=== PATIENT | male | born 1945 | race Caucasian/White ===

== ENCOUNTER 2023-07-05 16:26 | Emergency (ER) | payer MEDICARE, BC, SELFPAY ==
[2023-07-05 16:56] VITALS: BP 119/76
[2023-07-05 17:12] LABS: % Basophils 0.2 % (0-2); % Immature Granulocytes 0.4 % (0-0.5); % Lymphocytes 3.3 % (20.5-51.1); % Monocytes 6.2 % (1.7-9.3); % Neutrophils 89.9 % (42.2-75.2); Absolute Lymphocytes 0.3 10^3/uL (1.2-3.4); Absolute Monocytes 0.6 10^3/uL (0.1-0.6); Absolute Neutrophils 9.1 10^3/uL (1.4-6.5); Hematocrit 36.2 % (39.0-52.0); Hemoglobin 12.2 g/dL (13.0-18.0); Mean Corp Hgb Conc. 33.7 g/dL (33.0-37.0); Mean Corpuscular Hgb 31.1 pg (27.0-31.0); Mean Corpuscular Volume 92.3 fL (80.0-94.0); Mean Platelet Volume 9.3 fL (7.4-10.4); Nucleated Red Blood Cells % 0 % (-); Platelet Count 219 10^3/uL (130-400); Red Blood Cell Count 3.92 10^6/uL (4.70-6.10); Red Cell Dist. Width 13.6 % (11.5-14.5); White Blood Cell Count 10.1 10^3/uL (4.8-10.8)
[2023-07-05 17:24] LABS: ALT (SGPT) 26 U/L (0-50); AST (SGOT) 31 U/L (17-59); Albumin 4.2 g/dl (3.5-5.0); Alkaline Phosphatase 114 U/L (38-126); Blood Urea Nitrogen 30 mg/dl (9-20); Calcium 9.1 mg/dl (8.4-10.2); Carbon Dioxide 21 mmol/L (22-30); Chloride 110 mmol/L (98-107); Glucose 129 mg/dl (70-99); Lipase 34 U/L (23-300); Potassium 4.4 mmol/L (3.5-5.1); Sodium 139 mmol/L (135-145); Total Bilirubin 0.8 mg/dl (0.2-1.3); eGFR 51.45
[2023-07-05 17:59] VITALS: BMI 22.1
--- NOTE | 2023-07-05 18:30 | ED.GENMED ---
History of Present Illness
General
Chief Complaint: Abdominal Pain
Source: patient and other (Friend who is power of attorney general)
Exam Limitations: none
Time Seen by Provider: 07/05/23 17:54
Travel History
Have you had any contact with someone who has COVID-19?: No
Do you have any symptoms of coronavirus? Fever > 100 degrees, chills, cough, shortness of breath, sore throat, loss of taste or smell, muscle aches, or headache?: Yes
Symptoms:: chills
History of Present Illness
History of Present Illness:
This is a 78 year old male that is brought in by with c/o vomiting and diarrhea. Sates that he has only been home from Rehab for 2 weeks. Then last night he started with vomiting and diarrhea. Told that the vomiting started out clear and then it
turned brown. States that he did have some chills and his abd feels sore. Denies any fever, chest pain, SOB, headache, dizziness, urinary burning.
Past History
Past History
ED Past Medical History: Asthma, GERD, HTN, Hypercholesterolemia, Other (hiatal hernia, cerebral palsy, Diverticulitis, Renal calculus, Left arm fracture, ), Other (gallstones, diverticulitis) and Other (Kidney stones, CP)
ED Past Surgical History: Cardiac (Stents), Cholecystectomy, Orthopedic (L4-5 fusion with laminectomy), Tonsilectomy, Urological (JJ stents, lithrotripsy) and Other (Hernia)
Social History
Tobacco: Non-smoker
Alcohol: None
Personal: Single
Living: alone (daughters nearby)
Family History
Family History: Other (non contributory)
Review of Systems
Review of Systems
All Other Systems: ROS reviewed and negative except as documented in HPI and ROS
Constitutional: Reports chills; Denies fever
EENT: Reports no symptoms
Respiratory: Denies cough or trouble breathing
Cardiac: Reports no symptoms; Denies chest pain
ABD/GI: Reports abdominal pain (feels sore), nausea, vomiting and diarrhea
: Reports no symptoms; Denies dysuria, frequency or urgency
Musculoskeletal: Reports no symptoms
Skin: Reports no symptoms
Neurological: Reports no symptoms; Denies dizzy or headache
Psychiatric: Reports no symptoms
Phy Exam
General Physical Exam
General Presentation: no apparent distress
General age: appears stated age
General Skin: warm and dry
General Habitus: elderly
General Mental: alert
General Hydration: appears well hydrated
ENT Exam
ENT Exam: TM's normal, pharynx normal and neck supple
Eye Exam
Eye Exam: EOMI
Cardiovascular Exam
Cardiovascular Exam: regular rate/rhythm and normal peripheral pulses
Pulmonary Exam
Pulmonary Exam: lungs clear, no respiratory distress, no rales, chest non tender, no crackles, no rhonchi, no wheezing and no cough
Gastrointestinal Exam
Gastrointestinal Exam: normal bowel sounds, soft, no organomegaly, no pulsatile mass, non distended, tender (right sided tenderness with palpation) and other (Stool brown hem negative. )
Musculoskeletal Exam
Musculoskeletal Exam: full ROM and edema (Lower legs R>L +2pitting)
Skin Exam
Skin Exam: normal color, warm/dry, no rash and no petechia
Psychiatric Exam
Psychiatric Exam: normal mood/affect
Course
Orders/Labs/Results
Orders:
Orders
07/05/23 17:03
Complete Blood Count/With Diff Urgent
Comprehensive Metabolic Panel Urgent
Lipase Urgent
07/05/23 18:28
0.9% Sodium Chloride 1000 ml [Nss] 1,000 ml IV BOLUS
Iohexol [Omnipaque] See Protocol PO NOW STA
07/05/23 18:29
CT Abd/pel W Iv And Oral Contr Urgent
Comment:
Reason For Exam: right sided abd tenderness
07/05/23 18:30
Ondansetron Injectable [Zofran] 4 mg IV NOW STA
07/05/23 18:32
Pantoprazole [Protonix IV] 40 mg IV NOW STA
Abnormal Lab Results
07/05/23
17:03
RBC 3.92 L 10^6/uL
(4.70-6.10)
Hgb 12.2 L g/dL
(13.0-18.0)
Hct 36.2 L %
(39.0-52.0)
MCH 31.1 H pg
(27.0-31.0)
Absolute Neuts (auto) 9.1 H 10^3/uL
(1.4-6.5)
Absolute Lymphs (auto) 0.3 L 10^3/uL
(1.2-3.4)
Neutrophils % 89.9 H %
(42.2-75.2)
Lymphocytes % 3.3 L %
(20.5-51.1)
Chloride 110 H mmol/L
(98-107)
Carbon Dioxide 21 L mmol/L
(22-30)
BUN 30 H mg/dl
(9-20)
Creatinine 1.4 H mg/dL
(0.7-1.3)
Glucose 129 H mg/dl
(70-99)
07/05/23 17:03
07/05/23 17:03
H/H slightly low. chloride elevated. Dehydration. Chronic renal insufficiency, Glucose nonfasting. Lipase normal at 34
Vital Signs
Initial and Last Documented VS:
Initial Vital Signs
Temp Pulse Resp BP Pulse Ox
99.3 F 102 16 119/76 96
07/05/23 16:56 07/05/23 16:56 07/05/23 16:56 07/05/23 16:56 07/05/23 16:56
Last Documented Vital Signs
Temp Pulse Resp BP Pulse Ox
98.3 F 77 20 102/68 98
07/05/23 21:04 07/05/23 21:04 07/05/23 21:04 07/05/23 21:04 07/05/23 21:04
MDM/Problems Addressed
Differential Diagnosis Includes:
Viral Gi syndrome.
MDM/Problems Addressed:
This is a 78 year old male that comes in with c/o vomiting and diarrhea. States that this started last night and that at first his vomit was clear and then it was brown.
Will check labs and get CT of abd/pelvis. Will also give IV fluids.
Back into see patient. Explained that his blood work shows dehydration. His CT was negative for anything acute. There is diverticulosis and a stone in the left kidney. Patient states that the stone has been there for years. Explained that this could
have been a viral illness. Will give patient a prescription for Zofran. Patient to stay on a liquid diet and advance as tolerated. Patient to stay away form milk and milk products until the diarrhea stops. Patient to return with any concerns.
Chronic conditions affecting care:
NA
Acute Exacerbation and/or Progression of Chronic Illness:
NA
*Radiology
Radiology exam reviewed: radiology read reviewed (CT-No Ct evidence for an acute inflammatory process in the abd or pelvis. Colonic diverticulosis. Nephrolithiasis, primarily in the left lower pole. No hydronephrosis. Multiple bilateral renal cyst.
Large hiatal hernia. )
*Pulse Oximetry
Patient hypoxic: no
*EKG
Interpreted by ED Provider?: NA
Rate: EKG- N/A
*Lead Tank Mechanic Interpretation
Rate: Lead Tank Mechanic- N/A
*Critical Care Note
Total Time (30-74mins, 75-104mins- exclusive of procedures): Not Applicable
ED Attending Note
-
Portions of this chart may have been created with voice recognition software.� Occasional wrong word or��sound alike� substitutions may have occurred due to the inherent limitations of voice recognition software.
Discharge Plan
Departure
Patient Disposition: Home (Routine Discharge)
Date of Disposition: 07/05/23
Time of Disposition: 22:29
Patient with high blood pressure during this ER visit?: No
Condition: Good
Covid-19: Not Applicable
Discharge Problem:
Nausea & vomiting, Diarrhea
Instructions: Diarrhea in adolescents and adults, Nausea and Vomiting, Adult (DC)
Prescriptions:
New
ondansetron 4 mg tablet,disintegrating
4 mg PO Q8H PRN (Reason: nausea and vomiting) Qty: 10 0RF
No Action
simvastatin 40 MG tablet
40 mg PO DAILY
lisinopril 10 MG tablet
10 mg PO DAILY
fexofenadine-pseudoephedrine [Deandra-D 24 Hour] 1 EACH tablet extended release 24 hr
10 mg PO DAILY PRN (Reason: allergies)
cholecalciferol (vitamin D3) [Vitamin D3] 2,000 UNIT capsule
2,000 unit PO DAILY
acetaminophen 325 MG tablet
650 mg PO Q4HPRN PRN (Reason: PAIN)
esomeprazole magnesium [Nexium] 40 MG capsule,delayed release(DR/EC)
40 mg PO DAILY
Dexilant
60 mg PO DAILY
Rx Instructions:
unsure of dose
Referrals:
Betsy Lara, [Family Provider] - Follow up in 2-3 days
Activity Restrictions/Additional Instructions:
As discussed, your blood work shows that you are dehydration. Please increase your water intake to 8-8oz glasses daily. Please stay away from milk and milk products until the diarrhea stops. Stay on a liquid diet for the next 24 hours and then
advance your as tolerated. Follow up with the family doctor for recheck. A Prescription has been sent to your Pharmacy for Zofran that will help with the nausea/vomiting. IF YOU HAVE ANY OTHER CONCERNS PLEASE RETURN TO THE EMERGENCY ROOM.
Interventions
Interventions:
*Risk Screen - Suicide Last Done: 07/05/23 17:59
*General Assessment Last Done: 07/05/23 16:56
*Neglect/Abuse Screening Last Done: 07/05/23 17:59
ED- Fall Risk Assessment Last Done: 07/05/23 21:04
*ED COVID-19 Vaccine History Last Done: 07/05/23 16:56
GG-Lmjauy-Hpuwkrxbiw Assessment Last Done: 07/05/23 21:04
[2023-07-05] MEDS: ZOFRAN 4 MG IV (18:38)
[2023-07-05] MEDS: OMNIPAQUE 50 ML PO (18:38)
[2023-07-05 18:39] VITALS: BP 109/67
[2023-07-05] MEDS: PROTONIX IV 40 MG IV (18:39)
[2023-07-05] MEDS: NSS 1000 IV (18:41)
[2023-07-05 19:01] VITALS: BP 103/67
[2023-07-05 19:50] VITALS: BP 103/67
[2023-07-05 21:04] VITALS: BP 102/68
[2023-07-05] MEDS: ZOFRAN 4 MG PO (22:38)
[2023-07-05 22:40] VITALS: BP 103/54
== END 2023-07-05 23:03 | disposition home or self-care (01) ==
LOC: EMR 16:26
PROVIDERS: Emergency Medicine; EMERGENCY PHYSICIAN Student in an Organized Health Care Education/Training Program; FAMILY PHYSICIAN Family Medicine
DX: R11.2 Nausea with vomiting, unspecified (principal); R19.7 Diarrhea, unspecified
CPT/HCPCS: 99285; 96374; 96375; 96361; 74177; 80053; 83690; 85025; Q9967

== ENCOUNTER → 2023-11-16 14:20 | Outpatient (REF) | payer MEDICARE, BC, SELFPAY | LOC: HWRAD 14:20 | PROVIDERS: ATTENDING PHYSICIAN Family Medicine | DX: M81.0 Age-related osteoporosis without current pathological fracture (principal) | CPT/HCPCS: 77080 ==

== ENCOUNTER → 2023-11-17 08:02 | Outpatient (REF) | payer MEDICARE, BC, SELFPAY ==
[2023-11-17 11:29] LABS: ALT (SGPT) 25 U/L (0-50); AST (SGOT) 28 U/L (17-59); Alkaline Phosphatase 98 U/L (38-126); Blood Urea Nitrogen 27 mg/dl (9-20); Calcium 9.7 mg/dl (8.4-10.2); Carbon Dioxide 25 mmol/L (22-30); Chloride 108 mmol/L (98-107); Glucose 96 mg/dl (70-99); HDL Cholesterol 62 mg/dl; LDL Cholesterol, Calculated 84 mg/dl; Potassium 4.9 mmol/L (3.5-5.1); Sodium 142 mmol/L (135-145); Total Bilirubin 0.9 mg/dl (0.2-1.3); Total Cholesterol 161 mg/dl (50-199); Total Protein 6.7 g/dl (6.3-8.2); Triglyceride 78 mg/dl (10-149); Very Low Density Lipoprotein 15 mg/dl (0-30); eGFR 43.83
[2023-11-17 11:39] LABS: Vitamin D, 25-OH*** 49.1 ng/mL (30-80)
[2023-11-17 11:53] LABS: PSA, Total - Diagnostic 2.64 ng/ml (0.0-4.0)
[2023-11-17 11:54] LABS: Glycohemoglobin (HgbA1c) 5.4 % (4.0-5.6)
[2023-11-17 12:34] LABS: TSH 0.52 uIU/ml (0.47-4.68)
[2023-11-17 14:00] LABS: % Basophils 1.3 % (0-2); % Eosinophils 1.6 % (0-6); % Immature Granulocytes 0.4 % (0-0.5); % Lymphocytes 26.9 % (20.5-51.1); % Neutrophils 60.8 % (42.2-75.2); Absolute Basophils 0.1 10^3/uL (0-0.2); Absolute Eosinophils 0.1 10^3/uL (0-0.7); Absolute Lymphocytes 1.5 10^3/uL (1.2-3.4); Absolute Monocytes 0.5 10^3/uL (0.1-0.6); Absolute Neutrophils 3.4 10^3/uL (1.4-6.5); Hematocrit 37.5 % (39.0-52.0); Hemoglobin 12.6 g/dL (13.0-18.0); Mean Corp Hgb Conc. 33.6 g/dL (33.0-37.0); Mean Corpuscular Hgb 29.9 pg (27.0-31.0); Mean Corpuscular Volume 89.1 fL (80.0-94.0); Mean Platelet Volume 9.9 fL (7.4-10.4); Nucleated Red Blood Cells % 0 % (-); Platelet Count 230 10^3/uL (130-400); Red Blood Cell Count 4.21 10^6/uL (4.70-6.10); Red Cell Dist. Width 12.9 % (11.5-14.5); White Blood Cell Count 5.6 10^3/uL (4.8-10.8)
[2023-11-17 14:53] LABS: Urine Albumin Negative (Neg - Trace); Urine Bilirubin Negative (Negative); Urine Character Clear (Clear); Urine Color Yellow; Urine Glucose Negative (Negative); Urine Ketone Negative (Negative); Urine Leukocyte Negative (Negative); Urine Nitrite Negative (Negative); Urine Occult Blood Negative (Negative); Urine Urobilinogen Negative (Neg - 1+)
[2023-11-17 16:11] LABS: Microalbumin, Random Urine 1.5 mg/dl (0.6-1.7); Microalbumin/creatinine Ratio 8.6 mg/g
== END ==
LOC: HWLAB 08:02
PROVIDERS: ATTENDING PHYSICIAN Family Medicine
DX: R73.01 Impaired fasting glucose (principal); I10 Essential (primary) hypertension; M18.32 Unilateral post-traumatic osteoarthritis of first carpometacarpal joint, left hand; E78.5 Hyperlipidemia, unspecified; E55.9 Vitamin D deficiency, unspecified; R68.89 Other general symptoms and signs; M81.0 Age-related osteoporosis without current pathological fracture; N40.0 Benign prostatic hyperplasia without lower urinary tract symptoms
CPT/HCPCS: 36415; 80053; 80061; 81003; 82043; 82306; 82570; 83036; 84153; 84443; 85025

== ENCOUNTER → 2024-07-26 08:25 | Outpatient (REF) | payer MEDICARE, BC, SELFPAY ==
[2024-07-26 12:42] LABS: % Eosinophils 3.2 % (0-6); % Immature Granulocytes 0.6 % (0-0.5); % Lymphocytes 24.5 % (20.5-51.1); % Monocytes 9.1 % (1.7-9.3); % Neutrophils 61.6 % (42.2-75.2); Absolute Basophils 0.1 10^3/uL (0-0.2); Absolute Eosinophils 0.2 10^3/uL (0-0.7); Absolute Lymphocytes 1.5 10^3/uL (1.2-3.4); Absolute Monocytes 0.6 10^3/uL (0.1-0.6); Absolute Neutrophils 3.8 10^3/uL (1.4-6.5); Hematocrit 36.9 % (39.0-52.0); Hemoglobin 12.1 g/dL (13.0-18.0); Mean Corp Hgb Conc. 32.8 g/dL (33.0-37.0); Mean Corpuscular Hgb 30.3 pg (27.0-31.0); Mean Corpuscular Volume 92.3 fL (80.0-94.0); Mean Platelet Volume 9.6 fL (7.4-10.4); Nucleated Red Blood Cells % 0 % (-); Platelet Count 229 10^3/uL (130-400); Red Cell Dist. Width 12.9 % (11.5-14.5); Reticulocyte Count 1.3 % (0.4-2.8); White Blood Cell Count 6.2 10^3/uL (4.8-10.8)
[2024-07-26 12:55] LABS: ALT (SGPT) 20 U/L (0-50); AST (SGOT) 27 U/L (17-59); Albumin 4.5 g/dl (3.5-5.0); Alkaline Phosphatase 108 U/L (38-126); Blood Urea Nitrogen 28 mg/dl (9-20); Calcium 9.4 mg/dl (8.4-10.2); Carbon Dioxide 25 mmol/L (22-30); Chloride 108 mmol/L (98-107); Glucose 98 mg/dl (70-99); HDL Cholesterol 69 mg/dl; Iron 118 ug/dl (49-181); LDL Cholesterol, Calculated 90 mg/dl; Magnesium 2.1 mg/dl (1.6-2.3); Potassium 4.5 mmol/L (3.5-5.1); Sodium 142 mmol/L (135-145); Total Bilirubin 1.1 mg/dl (0.2-1.3); Total Cholesterol 175 mg/dl (50-199); Triglyceride 83 mg/dl (10-149); Very Low Density Lipoprotein 16 mg/dl (0-30)
[2024-07-26 13:04] LABS: Percent Saturation 36 % (20-50); Total Iron Binding Capacity 327 ug/dl (261-462)
[2024-07-26 13:05] LABS: Intact PTH 72.6 pg/ml (13.6-85.8)
[2024-07-26 13:16] LABS: Microalbumin/creatinine Ratio 6.8 mg/g
[2024-07-26 13:30] LABS: Ferritin 26.1 ng/ml (17.9-464.0)
== END ==
LOC: HWLAB 08:25
PROVIDERS: ATTENDING PHYSICIAN Internal Medicine; FAMILY PHYSICIAN Family Medicine
DX: I10 Essential (primary) hypertension (principal); E78.2 Mixed hyperlipidemia; D64.9 Anemia, unspecified; N18.32 Chronic kidney disease, stage 3b; M81.0 Age-related osteoporosis without current pathological fracture; R73.01 Impaired fasting glucose; E55.9 Vitamin D deficiency, unspecified
CPT/HCPCS: 36415; 80053; 80061; 82043; 82570; 82728; 83540; 83550; 83735; 83970; 85025; 85045

== ENCOUNTER → 2025-03-21 07:59 | Outpatient (REF) | payer MEDICARE, BC, SELFPAY ==
[2025-03-21 10:18] LABS: Hematocrit 35.0 % (39.0-52.0); Hemoglobin 11.5 g/dL (13.0-18.0); Mean Corp Hgb Conc. 32.9 g/dL (33.0-37.0); Mean Corpuscular Volume 90.0 fL (80.0-94.0); Nucleated Red Blood Cells % 0 % (-); Platelet Count 260 10^3/uL (130-400); Red Cell Dist. Width 13.7 % (11.5-14.5)
[2025-03-21 10:31] LABS: Urine Character Clear (Clear)
[2025-03-21 10:37] LABS: ALT (SGPT) 25 U/L (0-50); AST (SGOT) 22 U/L (17-59); Albumin 4.0 g/dl (3.5-5.0); Alkaline Phosphatase 106 U/L (38-126); Blood Urea Nitrogen 59 mg/dl (9-20); Calcium 9.1 mg/dl (8.4-10.2); Carbon Dioxide 17 mmol/L (22-30); Chloride 117 mmol/L (98-107); Glucose 110 mg/dl (70-99); HDL Cholesterol 68 mg/dl; LDL Cholesterol, Calculated 100 mg/dl; Potassium 5.6 mmol/L (3.5-5.1); Sodium 142 mmol/L (135-145); Total Protein 6.7 g/dl (6.3-8.2); Very Low Density Lipoprotein 19 mg/dl (0-30); eGFR 31.23
[2025-03-21 10:49] LABS: Vitamin D, 25-OH*** 74.4 ng/mL (30-80)
[2025-03-21 10:57] LABS: Glycohemoglobin (HgbA1c) 5.6 % (4.0-5.6)
[2025-03-21 11:02] LABS: PSA, Total - Diagnostic 2.98 ng/ml (0.0-4.0); TSH 1.01 uIU/ml (0.47-4.68)
[2025-03-21 11:33] LABS: Urine Squamous Cell 0-2 /LPF (Few)
[2025-03-21 11:34] LABS: Urine Red Blood Cell 0-2 /HPF (0-2); Urine White Cell 0-2 /HPF (0-5)
[2025-03-21 11:42] LABS: Microalbumin, Random Urine 1.0 mg/dl (0.6-1.7)
[2025-03-21 11:47] LABS: Microalb - Urine Creatinine 92.500 mg/dl
== END ==
LOC: HWLAB 07:59
PROVIDERS: ATTENDING PHYSICIAN Family Medicine
DX: R73.01 Impaired fasting glucose (principal); I10 Essential (primary) hypertension; E78.5 Hyperlipidemia, unspecified; N18.32 Chronic kidney disease, stage 3b; E55.9 Vitamin D deficiency, unspecified; R68.89 Other general symptoms and signs; N40.0 Benign prostatic hyperplasia without lower urinary tract symptoms
CPT/HCPCS: 36415; 80053; 80061; 81003; 81015; 82043; 82306; 82570; 83036; 84153; 84443; 85025

== ENCOUNTER 2025-03-24 13:32 | Inpatient (IN) | payer MEDICARE, BC, SELFPAY ==
[2025-03-24] VITALS (9 sets, daily range): BP systolic 100–114; BP diastolic 56–69; BMI 20.4; BMI 19.0
--- NOTE | 2025-03-24 10:14 | ED.GENMED ---
History of Present Illness
<Edward Le PA-C - Last Filed: 03/24/25 14:26>
General
Chief Complaint: Abnormal Lab Value
Time Seen by Provider: 03/24/25 10:03
History of Present Illness
History of Present Illness:
8-year-old male with history of cerebral palsy, hypertension, hyperlipidemia presents to the emergency department for evaluation of general fatigue and weakness ongoing for the past month. Patient was primary care physician earlier in the week and
had outpatient labs that showed abnormal renal function, thus was sent to the ED due to worsening symptoms. He denies any recent fevers or chills. He does report that his 'gastritis' has been acting up lately and usually controls this with
dicyclomine however the dicyclomine is not helping. States that he 'feels dehydrated'.
Past History
<Edward Le PA-C - Last Filed: 03/24/25 14:26>
Past History
ED Past Medical History: Asthma, GERD, HTN, Hypercholesterolemia, Other (hiatal hernia, cerebral palsy, Diverticulitis, Renal calculus, Left arm fracture, ), Other (gallstones, diverticulitis) and Other (Kidney stones, CP)
ED Past Surgical History: Cardiac (Stents), Cholecystectomy, Orthopedic (L4-5 fusion with laminectomy), Tonsilectomy, Urological (JJ stents, lithrotripsy) and Other (Hernia)
Social History
Tobacco: Non-smoker
Alcohol: None
Personal: Single
Living: alone (daughters nearby)
Family History
Family History: Other (non contributory)
Review of Systems
<Edward Le PA-C - Last Filed: 03/24/25 14:26>
Review of Systems
Allergies reviewed?: Yes
All Other Systems: ROS reviewed and negative except as documented in HPI and ROS
Phy Exam
<Edward Le PA-C - Last Filed: 03/24/25 14:26>
Physical Exam
Physical Exam:
GEN: Well appearing, NAD, WDWN
HEENT: Oral mucosa moist, no scleral icterus
Cardiac: Regular rate and rhythm, subtle systolic murmur reportedly known to patient
Lung: No respiratory distress, no tachypnea
MSK: No gross deformity or injuries
Skin: Good color, no pallor or jaundice, no rashes
Neuro: AO x3, moves all extremities freely
Psych: Calm, cooperative
Course
<Edward Le PA-C - Last Filed: 03/24/25 14:26>
Orders/Labs/Results
Orders:
Orders
03/24/25 10:06
Bladder Scan- Treatment ONCE
Comment: Post void residual
0.9% Sodium Chloride 1000 ml [Nss] 1,000 ml IV BOLUS
03/24/25 10:25
Complete Blood Count/No Diff Urgent
Comprehensive Metabolic Panel Urgent
Urinalysis Reflex To Culture Urgent
Date Specimen was Collected: 03/24/25
Time Specimen was Collected: 10:19
Urine Microscopic Reflex Cult Urgent
03/24/25 11:07
Electrocardiogram (*1) Urgent
Reason for Study: QTc Monitoring
EKG- Treatment ONCE
03/24/25 11:16
Dextrose 50%-Water [Dextrose 50% Syringe] 12.5 grams IV [id number] PRN
Dextrose 50%-Water [Dextrose 50% Syringe] 25 grams IV NOW STA
Insulin Human Regular [Novolin R] 5 units IV NOW STA
Bedside Glucose PRE IV Insulin- HyperK+ NOW
03/24/25 12:03
Straight Cath As Directed
Frequency: One time now
03/24/25 12:20
Dextrose 5%/Water 1000 ml [D5w] 1,000 ml Sodium Bicarbonate 150 meq IV 100 mls/hr
03/24/25 12:46
Bedside Glucose POST IV Insulin- HyperK+ Q1HX2,Q2HX2
03/24/25 12:51
Admit/Transfer Patient As Directed
Co-Sign Provider:
Level of Care: Inpatient admission
Assign to:: Telemetry
Physician / Group: keke
Diagnosis: demetra
Reason for Telemetry: Arrhythmia
Date to Stop Telemetry: 03/27/25
Time to Stop Telemetry: 11:00
Reason for Hospitalization: demetra
Expected length of stay greater than two midnights?: Yes
ELOS- Estimated Length of Stay in days: 2
I certify the patient meets the requirements for IP care: Yes
03/24/25 12:52
Code Status As Directed
Resuscitation Status: Full Code
PRN Pain Medication Management As Directed
May give lesser potent ordered pain med per pt: Yes
preference::
Protocol:: Medication orders for pain may be administered in a
manner that supports deferring to patient preference
when the pt is:
- Requesting an ordered lesser potent pain medication.
Least to most potent pain medications are defined
as: acetaminophen < NSAID < tramadol < opioids
(morphine, oxycodone, hydromorphone).
- Requesting a lesser dose of the same medication IF
ORDERED.
- Requesting a less intrusive route of administration
if both routes are prescribed by the provider (PO <
IV).
03/24/25 12:53
Abdomen/Pelvis wo Contrast CT [CT Abd/pelvis Wo Iv Cont] Urgent
Comment:
Reason For Exam: obstructive uropathy
03/24/25 12:55
Glucose Urgent
Potassium Urgent
Comment: draw 2 hours after regular insulin IV administration
Calcium Gluconate 1,000 mg IV NOW STA
03/24/25 13:15
Dextrose 5%/Water 1000 ml [D5w] 1,000 ml Sodium Bicarbonate 150 meq IV 100 mls/hr
03/24/25 14:11
NEPHROLOGY CONSULT Routine
Consulting Provider: Douglas Tompkins
Was physician already notified: Yes
Activity As Directed
Activity Level: As Tolerated
Bladder Scan As Directed
Follow Bladder Retention/Intermittent Cath Algorithm?: Yes
PRN if no void in __ hours: 6
Frequency: Per Retention Algorithm
If Bladder Scan Result >: 400
then:: Straight cath
Straight Cath As Directed
Frequency: Per Retention Algorithm
Additional Instructions: straight cath as needed per acute urinary retention algorithm for 24 hrs
Additional Instructions: for bladder scan greater than 400 mL
Vital Signs As Directed
Frequency: Per unit guidelines
DX Deep Vein Thrombosis Video Routine
03/24/25 Dinner
Regular
At Your Request: Full Participation
Does patient need a safe tray?: No
03/24/25 20:00
Heparin 5,000 units SC Q12
03/25/25 06:00
Complete Blood Count/With Diff IN AM
Comprehensive Metabolic Panel IN AM
03/27/25 11:00
DC Protocol for Telemetry ONCE
Abnormal Lab Results
03/24/25 03/24/25 03/24/25
: 12:47 12:55
RBC 3.84 L 10^6/uL
(4.70-6.10)
Hgb 11.3 L g/dL
(13.0-18.0)
Hct 34.0 L %
(39.0-52.0)
Potassium 6.0 H mmol/L
(3.5-5.1)
Chloride 116 H mmol/L
(98-107)
Carbon Dioxide 17 L mmol/L
(22-30)
BUN 61 H mg/dl
(9-20)
Creatinine 2.0 H mg/dL
(0.7-1.3)
Glucose 107 H mg/dl 41 L* mg/dl
(70-99) (70-99)
Urine Bacteria (Reflex) Few A
(Negative)
Urine Glucose 2+ A
(Negative)
Urine Albumin (Reflex) 1+ A
(Neg - Trace)
POC Glucose 559 H* mg/dl
(70-99)
03/24/25 10:25
03/24/25 12:55
Vital Signs
Initial and Last Documented VS:
Initial Vital Signs
Temp Pulse Resp BP Pulse Ox
97.5 F 85 20 108/69 100
03/24/25 09:25 03/24/25 09:25 03/24/25 09:25 03/24/25 09:25 03/24/25 09:25
Last Documented Vital Signs
Temp Pulse Resp BP Pulse Ox
97.5 F 72 20 102/56 97
03/24/25 09:25 03/24/25 13:30 03/24/25 09:25 03/24/25 13:00 03/24/25 13:15
<Josh Baird, DO - Last Filed: 03/24/25 13:47>
Orders/Labs/Results
Orders:
Orders
03/24/25 10:06
Bladder Scan- Treatment ONCE
Comment: Post void residual
0.9% Sodium Chloride 1000 ml [Nss] 1,000 ml IV BOLUS
03/24/25 10:25
Complete Blood Count/No Diff Urgent
Comprehensive Metabolic Panel Urgent
Urinalysis Reflex To Culture Urgent
Date Specimen was Collected: 03/24/25
Time Specimen was Collected: 10:19
Urine Microscopic Reflex Cult Urgent
03/24/25 11:07
Electrocardiogram (*1) Urgent
Reason for Study: QTc Monitoring
EKG- Treatment ONCE
03/24/25 11:16
Dextrose 50%-Water [Dextrose 50% Syringe] 12.5 grams IV [id number] PRN
Dextrose 50%-Water [Dextrose 50% Syringe] 25 grams IV NOW STA
Insulin Human Regular [Novolin R] 5 units IV NOW STA
Bedside Glucose PRE IV Insulin- HyperK+ NOW
03/24/25 12:03
Straight Cath As Directed
Frequency: One time now
03/24/25 12:20
Dextrose 5%/Water 1000 ml [D5w] 1,000 ml Sodium Bicarbonate 150 meq IV 100 mls/hr
03/24/25 12:46
Bedside Glucose POST IV Insulin- HyperK+ Q1HX2,Q2HX2
03/24/25 12:51
Admit/Transfer Patient As Directed
Co-Sign Provider:
Level of Care: Inpatient admission
Assign to:: Telemetry
Physician / Group: keke
Diagnosis: demetra
Reason for Telemetry: Arrhythmia
Date to Stop Telemetry: 03/27/25
Time to Stop Telemetry: 11:00
Reason for Hospitalization: demetra
Expected length of stay greater than two midnights?: Yes
ELOS- Estimated Length of Stay in days: 2
I certify the patient meets the requirements for IP care: Yes
03/24/25 12:52
Code Status As Directed
Resuscitation Status: Full Code
PRN Pain Medication Management As Directed
May give lesser potent ordered pain med per pt: Yes
preference::
Protocol:: Medication orders for pain may be administered in a
manner that supports deferring to patient preference
when the pt is:
- Requesting an ordered lesser potent pain medication.
Least to most potent pain medications are defined
as: acetaminophen < NSAID < tramadol < opioids
(morphine, oxycodone, hydromorphone).
- Requesting a lesser dose of the same medication IF
ORDERED.
- Requesting a less intrusive route of administration
if both routes are prescribed by the provider (PO <
IV).
03/24/25 12:53
Abdomen/Pelvis wo Contrast CT [CT Abd/pelvis Wo Iv Cont] Urgent
Comment:
Reason For Exam: obstructive uropathy
03/24/25 12:55
Glucose Urgent
Potassium Urgent
Comment: draw 2 hours after regular insulin IV administration
Calcium Gluconate 1,000 mg IV NOW STA
03/24/25 13:15
Dextrose 5%/Water 1000 ml [D5w] 1,000 ml Sodium Bicarbonate 150 meq IV 100 mls/hr
03/24/25 14:11
NEPHROLOGY CONSULT Routine
Consulting Provider: Douglas Tompkins
Was physician already notified: Yes
Activity As Directed
Activity Level: As Tolerated
Bladder Scan As Directed
Follow Bladder Retention/Intermittent Cath Algorithm?: Yes
PRN if no void in __ hours: 6
Frequency: Per Retention Algorithm
If Bladder Scan Result >: 400
then:: Straight cath
Straight Cath As Directed
Frequency: Per Retention Algorithm
Additional Instructions: straight cath as needed per acute urinary retention algorithm for 24 hrs
Additional Instructions: for bladder scan greater than 400 mL
Vital Signs As Directed
Frequency: Per unit guidelines
DX Deep Vein Thrombosis Video Routine
03/24/25 Dinner
Regular
At Your Request: Full Participation
Does patient need a safe tray?: No
03/24/25 20:00
Heparin 5,000 units SC Q12
03/25/25 06:00
Complete Blood Count/With Diff IN AM
Comprehensive Metabolic Panel IN AM
03/27/25 11:00
DC Protocol for Telemetry ONCE
Abnormal Lab Results
03/24/25 03/24/25 03/24/25
12:47 12:55
RBC 3.84 L 10^6/uL
(4.70-6.10)
Hgb 11.3 L g/dL
(13.0-18.0)
Hct 34.0 L %
(39.0-52.0)
Potassium 6.0 H mmol/L
(3.5-5.1)
Chloride 116 H mmol/L
(98-107)
Carbon Dioxide 17 L mmol/L
(22-30)
BUN 61 H mg/dl
(9-20)
Creatinine 2.0 H mg/dL
(0.7-1.3)
Glucose 107 H mg/dl 41 L* mg/dl
(70-99) (70-99)
Urine Bacteria (Reflex) Few A
(Negative)
Urine Glucose 2+ A
(Negative)
Urine Albumin (Reflex) 1+ A
(Neg - Trace)
POC Glucose 559 H* mg/dl
(70-99)
03/24/25 10:25
03/24/25 12:55
Vital Signs
Initial and Last Documented VS:
Initial Vital Signs
Temp Pulse Resp BP Pulse Ox
97.5 F 85 20 108/69 100
03/24/25 09:25 03/24/25 09:25 03/24/25 09:25 03/24/25 09:25 03/24/25 09:25
Last Documented Vital Signs
Temp Pulse Resp BP Pulse Ox
97.5 F 72 20 102/56 97
03/24/25 09:25 03/24/25 13:30 03/24/25 09:25 03/24/25 13:00 03/24/25 13:15
Ciscolt;Edward Le PA-C - Last Filed: 03/24/25 14:26>
MDM/Problems Addressed
MDM/Problems Addressed:
Unclear if the patient's DEMETRA and hyperkalemia is contributory to his symptoms versus resultant status throughout. No EKG changes warranting calcium administration however IV insulin and dextrose given to hypercapnia in addition to bicarb drip to
the low serum bicarbonate. Will admit to the hospitalist service for further management. He was noted to be retaining urine at approximately 300 cc, straight cath performed
<Edward Le PA-C - Last Filed: 03/24/25 14:26>
*Pulse Oximetry
SaO2: 100
Oxygen Mode of Delivery: Room air
Patient hypoxic: no
*Critical Care Note
Total Time (30-74mins, 75-104mins- exclusive of procedures): Not Applicable
ED Attending Note
<Edward Le PA-C - Last Filed: 03/24/25 14:26>
-
Portions of this chart may have been created with voice recognition software.� Occasional wrong word or��sound alike� substitutions may have occurred due to the inherent limitations of voice recognition software.
<Josh Baird DO - Last Filed: 03/24/25 13:47>
ED Attending Note
Patient seen and examined by attending physician: Yes
I performed the substantive portion of visit, reviewed & personally made and approve the management plan that is documented in note by myself or JEWELS.: Yes
ED Attending Note:
I evaluated the patient at bedside. The patient has worsening renal function, low bicarb, high potassium and has been doing relatively poorly as an outpatient. The patient overall feels improved after his bladder was decompressed. Azotemia may be
related to both prerenal and postrenal reasons. Planning admission to the hospital. Hyperkalemia was addressed.
Discharge Plan
Departure
Patient Disposition: Admit
Date of Disposition: 03/24/25
Time of Disposition: 12:24
Admit to: Telemetry
Presentation/result/management discussed w/ accepting MD/DO: Hospitalist
Discharge Problem:
Adult failure to thrive, Acute hyperkalemia, Acute kidney injury superimposed on CKD
Interventions
Interventions:
*Risk Screen - Suicide Last Done: 03/24/25 10:11
*General Assessment Last Done: 03/24/25 10:11
*Neglect/Abuse Screening Last Done: 03/24/25 10:11
*ED- Fall Risk Assessment Last Done: 03/24/25 10:11
*ED COVID-19 Vaccine History Last Done: 03/24/25 10:11
*ED Influenza Vaccine History Last Done: 03/24/25 10:11
*Nursing Disposition Last Done: 03/24/25 14:04
Discharge Date and Time
Discharge Date/Time: 03/24/25 14:05
[2025-03-24] MEDS: NSS 1000 IV (10:23)
[2025-03-24 10:36] LABS: Hematocrit 34.0 % (39.0-52.0); Hemoglobin 11.3 g/dL (13.0-18.0); Mean Corp Hgb Conc. 33.2 g/dL (33.0-37.0); Mean Corpuscular Volume 88.5 fL (80.0-94.0); Platelet Count 215 10^3/uL (130-400); Red Cell Dist. Width 13.7 % (11.5-14.5)
[2025-03-24 11:02] LABS: ALT (SGPT) 24 U/L (0-50); AST (SGOT) 24 U/L (17-59); Albumin 4.2 g/dl (3.5-5.0); Alkaline Phosphatase 99 U/L (38-126); Blood Urea Nitrogen 61 mg/dl (9-20); Calcium 9.3 mg/dl (8.4-10.2); Carbon Dioxide 17 mmol/L (22-30); Chloride 116 mmol/L (98-107); Estimated Creatinine Clearance 25 ml/min; Glucose 107 mg/dl (70-99); Potassium 6.0 mmol/L (3.5-5.1); Sodium 142 mmol/L (135-145); Total Protein 6.9 g/dl (6.3-8.2); eGFR 33.12
[2025-03-24 11:45] LABS: Glucose - Point of Care 92 mg/dl (70-99)
[2025-03-24] MEDS: DEXTROSE 50% SYRINGE 25 GRAMS IV (11:46)
[2025-03-24] MEDS: NOVOLIN R 5 UNITS IV (11:49)
[2025-03-24 12:11] LABS: Urine Character Clear (Clear)
[2025-03-24 12:19] LABS: Urine Red Blood Cell 0-2 /HPF (0-2); Urine White Cell 0-2 /HPF (0-5)
[2025-03-24 12:48] LABS: Glucose - Point of Care 559 mg/dl (70-99)
[2025-03-24] MEDS: SODIUM BICARBONATE 1150 MEQ IV (12:51)
--- NOTE | 2025-03-24 12:56 | HPS.HSE ---
Family Physician
-
Family Physician: NOT KNOW UNKNOWN - PT DOES
Chief Complaint
-
weakness
History of Present Illness
80-year-old male with past medical history of hypertension, GERD, hypercholesteremia, gallstones, diverticulitis, cerebral palsy, renal calculi, chronic back pain, presenting with weakness and generalized fatigue and shortness of breath with
exertion ongoing for the past month. He saw his primary care physician earlier in the week and had outpatient labs that showed abnormal renal function so was sent to the emergency room. He denies any fevers or chills.
He has a history of gastritis with abdominal pain and states that it came back a month ago which she has been taking Bentyl with some improvement. He has been having loose stool/diarrhea recently. He has lost weight. He has fullness with light
eating. Denies any blood in the stool.
He has been making urine but less urine. Denies any blood in the urine. Denies any abdominal pain at this time. Denies any flank pain. Denies any prior history of chronic kidney disease. He does not see a electric needle specialist.
He reports that his gastritis has been acting up lately and he controls this with dicyclomine however dicyclomine has not been helping.
He denies smoking or alcohol use.
Medical History
Past Medical History
Past Medical History: Reports Other (hypertension, GERD, hypercholesteremia, gallstones, diverticulitis, cerebral palsy, renal calculi, chronic back pain)
Past Surgical History: Reports Other (Cardiac (Stents), Cholecystectomy, Orthopedic (L4-5 fusion with laminectomy), Tonsilectomy, Urological (JJ stents, lithrotripsy) and Other (Hernia))
Social History
Tobacco: Non-smoker
Alcohol: None
Drug: None
Family History
Family History: Not pertinent
Allergies / Home Medications
Allergies reflects when Allergies were last updated in [employer].
Home Medications with original date entered in [employer]
Allergy/Medication List:
Allergies
Allergy/AdvReac Type Severity Reaction Status Date / Time
Sulfa (Sulfonamide Allergy 'a bad Verified 03/24/25 09:28
Antibiotics) reaction,
nausea and
stuff like
that'
pollen,hat fever,trees,mold Allergy sneezing, Uncoded 03/24/25 09:28
asthma
Home Medications
cholecalciferol (vitamin D3) 50 mcg (2,000 unit) capsule (Vitamin D3) 2,000 unit PO DAILY 09/05/14
fexofenadine-pseudoephedrine ER 180 mg-240 mg tablet,ext.release 24 hr (Deandra-D 24 Hour) 10 mg PO DAILY PRN allergies 09/05/14
lisinopril 10 mg tablet 10 mg PO DAILY 09/05/14
simvastatin 40 mg tablet 40 mg PO DAILY 09/05/14
acetaminophen 325 mg tablet 650 mg PO Q4HPRN PRN PAIN 09/07/14
esomeprazole magnesium 40 mg capsule,delayed release (Nexium) 40 mg PO DAILY 10/18/16
Dexilant 60 mg PO DAILY 07/05/23
ondansetron 4 mg disintegrating tablet 4 mg PO Q8H PRN nausea and vomiting #10 tabs 07/05/23
Review of Systems
-
History Source: Patient
A 12 point ROS was completed and negative except as noted: Yes
Constitutional: Reports No Symptoms
EENT: Reports No Symptoms
Respiratory: Reports No Symptoms
Cardiac: Reports No Symptoms
Abdomen/GI: Reports See HPI
: Reports No Symptoms
Musculoskeletal: Reports No Symptoms
Skin: Reports No Symptoms
Neurological: Reports No Symptoms
Endocrine: Reports No Symptoms
Hematologic/Lymphatic: Reports No Symptoms
Psych: Reports No Symptoms
Physical Exam
Vital Signs
Vital Signs
Temp Pulse Resp BP Pulse Ox
97.5 F 85 20 101/57 99
03/24/25 09:25 03/24/25 09:25 03/24/25 09:25 03/24/25 12:01 03/24/25 12:33
Physical Exam
General: Well Developed, Well Nourished and No Apparent Distress
HEENT: NormoCephalic, Moist mucous membranes and Atraumatic
Respiratory: Clear
Cardiac: S1/S2 and Regular Rhythm; No Murmur or Rub
GI: Soft, Non Tender, Non Distended and Normal Bowel Sounds; No Organomegaly
Rectal: Deferred by Provider
Musculoskeletal: No Clubbing, No Cyanosis and No Edema
Skin: No Rash
Neuro: Nonfocal/grossly intact
Laboratory Results
-
03/24/25 10:25
Laboratory Results
Total Bilirubin 0.7 mg/dl (0.2-1.3) 03/24/25 10:25
AST 24 U/L (17-59) 03/24/25 10:25
ALT 24 U/L (0-50) 03/24/25 10:25
Alkaline Phosphatase 99 U/L (38-126) 03/24/25 10:25
Data Reviewed
-
Lab Data: Labs Reviewed by me
Old Records: Reviewed
Impression/Plan
-
IMPRESSION:
PLAN:
# BARRON on presumably CKD secondary to hypovolemia/lisinopril
# Hyperkalemia
# Anion gap metabolic acidosis
-Potassium of 6
- EKG shows normal sinus rhythm, peaked T waves
- Insulin dextrose, bicarb given, calcium gluconate
-Bicarb drip
-Hold lisinopril
- 300 cc on bladder scan, bladder scan protocol
-Check a I's and O's
-Check CT abdomen pelvis to look for obstruction given abdominal pain
- Nephrology consulted
# Gastritis symptoms
- Has been taking Bentyl
- Continue PPI
Essential hypertension
Hypercholesterolemia
- Continue statin
History of gallstones
History of diverticulitis
Cerebral palsy
History of renal calculi
Chronic anemia
- Hemoglobin stable 11 point
Chronic back pain status post back surgery
Full code
DVT prophylaxis-heparin
Renal diet
[2025-03-24] MEDS: CALCIUM GLUCONATE 1000 MG IV (13:17)
--- NOTE | 2025-03-24 13:36 | CM ---
Chart reviewed and spoke with patient at bedside.
Lives alone in a 2 story home with 3 ANA . BR on the first floor
Friend Shania is assisting with grocery shopping and as needed.
No other contact information provided
PLOF Walk with RW and able to drive
DME RW
PCP
RX plan yes
Pharmacy [facility] [place]
no hx of VN
hx of SNF : [facility]; 'Does NOT wish to return'
Cm will continue to follow for any dcp needs
[2025-03-24 13:43] LABS: Glucose 41 mg/dl (70-99); Potassium 5.1 mmol/L (3.5-5.1)
[2025-03-24 13:47] LABS: Glucose - Point of Care 76 mg/dl (70-99)
[2025-03-24 13:57] LABS: Glucose - Point of Care 77 mg/dl (70-99)
--- NOTE | 2025-03-24 15:00 | PTCARENOTE ---
Patient admitted to room 418-2. AAOx3, able to make needs known. Agreeable with using call [facility] to ring for assistance. VSS. IVF infusing per MD order.
[2025-03-24 16:22] LABS: Glucose - Point of Care 119 mg/dl (70-99)
--- NOTE | 2025-03-24 16:25 | W.CON.NEPH ---
Consultation
-
Date/Time Consultation Requested: March 24, 2025 at 1 PM
Date/Time Consultation Performed: March 24, 2025 at 4:30 PM
Requesting Provider: Keaton Clark
Performing Provider: Dr. Tompkins
Reason for Consultation: Acute on chronic kidney disease and hyperkalemia
Medical History
-
Chief Complaint: Hyperkalemia acute on chronic kidney disease
History of Present Illness:
80-year-old male with past medical history of hypertension, GERD, hypercholesteremia, gallstones, diverticulitis, cerebral palsy, renal calculi, chronic back pain, presenting with weakness and generalized fatigue and shortness of breath with
exertion ongoing for the past month. He saw his primary care physician earlier in the week and had outpatient labs that showed abnormal renal function so was sent to the emergency room. He denies any fevers or chills.
Recent treatment of urinary tract infection with Cipro. No Bactrim recorded.
Has been taking Aleve daily for about 2 to 3 weeks for his back.
Urinary retention in the ER 300 repeat on the floor is 375.
Renal consultation for acute on chronic kidney disease and hyperkalemia with potassium of 6 and a mild metabolic acidosis
Past Medical History
Past medical history of hypertension, GERD, hypercholesteremia, gallstones, diverticulitis, cerebral palsy, renal calculi, chronic back pain,
Social History
Tobacco: Non-Smoker
Alcohol: None
Family History
Family History: Not Pertinent
Allergies / Home Medications
Allergy/AdvReac Type Severity Reaction Status Date / Time
Sulfa (Sulfonamide Allergy 'a bad Verified 03/24/25 15:09
Antibiotics) reaction,
nausea and
stuff like
that'
pollen,hat fever,trees,mold Allergy sneezing, Uncoded 03/24/25 15:09
asthma
�Medication �Instructions �Recorded �Confirmed �Type
cholecalciferol (vitamin D3) 50 2,000 unit PO DAILY 09/05/14 03/24/25 History
mcg (2,000 unit) capsule (Vitamin
D3)
fexofenadine-pseudoephedrine ER 10 mg PO DAILY PRN allergies 09/05/14 03/24/25 History
180 mg-240 mg tablet,ext.release
24 hr (Deandra-D 24 Hour)
lisinopril 10 mg tablet 10 mg PO DAILY 09/05/14 03/24/25 History
simvastatin 40 mg tablet 40 mg PO DAILY 09/05/14 03/24/25 History
acetaminophen 325 mg tablet 650 mg PO Q4HPRN PRN PAIN 09/07/14 03/24/25 History
Dexilant 60 mg PO DAILY 07/05/23 03/24/25 History
Review of Systems
-
Chronic back pain no chest pain or shortness of breath no obvious difficulty urinating
All other systems: Negative unless noted
Physical Exam
Vital Signs
Vital Signs
Temp Pulse Resp BP Pulse Ox
98 F 82 16 113/59 97
03/24/25 14:29 03/24/25 14:29 03/24/25 14:29 03/24/25 14:29 03/24/25 14:29
Lab Results
WBC 9.0 10^3/uL (4.8-10.8) 03/24/25 10:25
RBC 3.84 10^6/uL (4.70-6.10) L 03/24/25 10:25
Hgb 11.3 g/dL (13.0-18.0) L 03/24/25 10:25
Hct 34.0 % (39.0-52.0) L 03/24/25 10:25
Plt Count 215 10^3/uL (130-400) 03/24/25 10:25
Sodium 142 mmol/L (135-145) 03/24/25 10:25
Potassium 5.1 mmol/L (3.5-5.1) 03/24/25 12:55
Chloride 116 mmol/L (98-107) H 03/24/25 10:25
Carbon Dioxide 17 mmol/L (22-30) L 03/24/25 10:25
BUN 61 mg/dl (9-20) H 03/24/25 10:25
Creatinine 2.0 mg/dL (0.7-1.3) H 03/24/25 10:25
eGFR 33.12 03/24/25 10:25
Glucose 41 mg/dl (70-99) L* 03/24/25 12:55
Calcium 9.3 mg/dl (8.4-10.2) 03/24/25 10:25
Albumin 4.2 g/dl (3.5-5.0) 03/24/25 10:25
Physical Exam
General no acute distress
HEENT no cephalic atraumatic extraocular muscle intact no scleral icterus no JVD neck supple
lungs clear to auscultation bilateral
heart regular S1-S2 positive
abdomen soft nontender positive bowel sounds
extremities no edema pulses present bilateral
Neurologically tremor speech impediment
Skin no lesions no abrasions no petechiae
Psych normal affect no bizarre behavior
Data Reviewed
-
CT Scan: Image Personally Visualized and interpreted
Assessment/Plan
-
80-year-old male with past medical history of hypertension, GERD, hypercholesteremia, gallstones, diverticulitis, cerebral palsy, renal calculi, chronic back pain, presenting with weakness and generalized fatigue and shortness of breath with
exertion ongoing for the past month. He saw his primary care physician earlier in the week and had outpatient labs that showed abnormal renal function so was sent to the emergency room. He denies any fevers or chills.
Recent treatment of urinary tract infection with Cipro. No Bactrim recorded.
Has been taking Aleve daily for about 2 to 3 weeks for his back.
Urinary retention in the ER 300 repeat on the floor is 375.
Renal consultation for acute on chronic kidney disease and hyperkalemia with potassium of 6 and a mild metabolic acidosis
Impression.
Acute on chronic kidney disease based with a baseline of 1.6�1.7 as of July 2024. Creatinine 2.1 on admission.
Hyperkalemia 6.
Urinary retention.
Cerebral palsy chronic stable.
Chronic back pain status post Aleve daily for 2 or 3 weeks.
Plan.
Acuity multifactorial urinary retention/daily use of Aleve.
Patient had urinary retention on 2 occasions in the ER and on the floors of over 300 could be contributing to his hyperkalemia though no obstructive pathology on CAT scan.
Will place Cantu catheter for 24 hours.
Prostate enlarged�will start Flomax.
Continue IV fluids in the form of bicarbonate as already ordered.
Bilateral renal cysts and bilateral renal stones and no obstructive component no further workup at this time.
Discussed with patient and friends/POA at the bedside with patient's permission
[2025-03-24 17:19] LABS: Glucose - Point of Care 222 mg/dl (70-99)
[2025-03-24] MEDS: FLOMAX 0.4 MG PO (17:51)
--- NOTE | 2025-03-24 20:06 | W.PN.UPDATE ---
Update Note
Progress Note Update
Called to see patient to discuss code status. Patient is oriented and able to make his own decisions. Patient requests that code status be changed to DNR. Reviewed with patient that if DNR, no CPR and no intubation/ventilation if his heart were to
stop or if he needed assistance with his breathing. He voices his understanding.
[2025-03-24] MEDS: HEPARIN 5000 UNITS SC (20:20)
[2025-03-25 03:31] VITALS: BP 99/60
[2025-03-25 05:10] VITALS: BMI 19.0
[2025-03-25 07:00] VITALS: BP 104/72
[2025-03-25 07:14] LABS: Hematocrit 27.8 % (39.0-52.0); Hemoglobin 9.5 g/dL (13.0-18.0); Mean Corp Hgb Conc. 34.2 g/dL (33.0-37.0); Mean Corpuscular Volume 89.4 fL (80.0-94.0); Nucleated Red Blood Cells % 0 % (-); Platelet Count 161 10^3/uL (130-400); Red Cell Dist. Width 13.4 % (11.5-14.5)
[2025-03-25 07:36] LABS: ALT (SGPT) 19 U/L (0-50); AST (SGOT) 19 U/L (17-59); Albumin 3.0 g/dl (3.5-5.0); Alkaline Phosphatase 79 U/L (38-126); Blood Urea Nitrogen 39 mg/dl (9-20); Calcium 8.4 mg/dl (8.4-10.2); Carbon Dioxide 24 mmol/L (22-30); Chloride 113 mmol/L (98-107); Estimated Creatinine Clearance 30 ml/min; Glucose 98 mg/dl (70-99); Potassium 5.5 mmol/L (3.5-5.1); Sodium 139 mmol/L (135-145); Total Protein 5.3 g/dl (6.3-8.2); eGFR 46.77
[2025-03-25] MEDS: VITAMIN D3 (cholecalciferol) 50 MCG PO (08:41)
[2025-03-25] MEDS: HEPARIN 5000 UNITS SC ×2 (08:41→20:06)
[2025-03-25] MEDS: CLARITIN 10 MG PO (08:41)
[2025-03-25] MEDS: FLOMAX 0.4 MG PO (08:47)
--- NOTE | 2025-03-25 10:40 | W.PN.NEPH.PH ---
Today's Communication / Plan
-
Maintain Cantu another 24 hours
Monitor potassium
Assessment/Plan
-
80-year-old male with past medical history of hypertension, GERD, hypercholesteremia, gallstones, diverticulitis, cerebral palsy, renal calculi, chronic back pain, presenting with weakness and generalized fatigue and shortness of breath with
exertion ongoing for the past month. He saw his primary care physician earlier in the week and had outpatient labs that showed abnormal renal function so was sent to the emergency room. He denies any fevers or chills.
Recent treatment of urinary tract infection with Cipro. No Bactrim recorded.
Has been taking Aleve daily for about 2 to 3 weeks for his back.
Urinary retention in the ER 300 repeat on the floor is 375.
Renal consultation for acute on chronic kidney disease and hyperkalemia with potassium of 6 and a mild metabolic acidosis
Impression.
Acute on chronic kidney disease based with a baseline of 1.6�1.7 as of July 2024. Creatinine 2.1 on admission.
Hyperkalemia 6.
Urinary retention.
Cerebral palsy chronic stable.
Chronic back pain status post Aleve daily for 2 or 3 weeks.
Plan.
Acuity multifactorial urinary retention/daily use of Aleve.
Patient had urinary retention on 2 occasions in the ER and on the floors of over 300 could be contributing to his hyperkalemia though no obstructive pathology on CAT scan.
Maintain Cantu catheter for another 24 hours.
Prostate enlarged�03/24 started Flomax.
Bilateral renal cysts and bilateral renal stones and no obstructive component no further workup at this time.
Discussed with patient and friends/POA at the bedside with patient's permission
Creatinine much improved 1.5 potassium remains slightly elevated 5.5. This should not improve as renal function improved. No indication for Lokelma or intervention.
Will try a voiding trial tomorrow
Discontinue bicarbonate IV
-
-
Date of Service: March 25, 2025
CC / HPI / ROS
-
Chief Complaint:
Acute on chronic kidney disease and hyperkalemia
History of Present Illness:
Presents with hyperkalemia acute kidney injury
Review of Systems:
No chest pain or shortness of breath
Cantu remains nonoliguric
Labs
-
Labs:
WBC 6.5 10^3/uL (4.8-10.8) 03/25/25 06:51
RBC 3.11 10^6/uL (4.70-6.10) L 03/25/25 06:51
Hgb 9.5 g/dL (13.0-18.0) L 03/25/25 06:51
Hct 27.8 % (39.0-52.0) L 03/25/25 06:51
Plt Count 161 10^3/uL (130-400) D 03/25/25 06:51
Sodium 139 mmol/L (135-145) 03/25/25 06:51
Potassium 5.5 mmol/L (3.5-5.1) H 03/25/25 06:51
Chloride 113 mmol/L (98-107) H 03/25/25 06:51
Carbon Dioxide 24 mmol/L (22-30) 03/25/25 06:51
BUN 39 mg/dl (9-20) H 03/25/25 06:51
Creatinine 1.5 mg/dL (0.7-1.3) H 03/25/25 06:51
eGFR 46.77 03/25/25 06:51
Glucose 98 mg/dl (70-99) 03/25/25 06:51
Calcium 8.4 mg/dl (8.4-10.2) 03/25/25 06:51
Albumin 3.0 g/dl (3.5-5.0) L 03/25/25 06:51
Physical Exam
-
Vital Signs:
Vital Signs
Temp Pulse Resp BP Pulse Ox
98.0 F 80 20 104/72 98
03/25/25 07:00 03/25/25 07:00 03/25/25 07:00 03/25/25 07:00 03/25/25 07:00
Respiratory:: Bilateral: CTA
Lung Excursion:: Normal
Abdomen:: Soft
Bowel Sounds:: Normal
Extremity Edema:: None: Bilateral:
Cantu Catheter: Yes
--- NOTE | 2025-03-25 10:58 | W.PN.HOSP.TC ---
Today's Communication/Plan
-
Lokelma one dose,
remove Cantu at 8pm for voiding trial
Assessment / Plan
Assessment / Plan
Physical Exam
General: No Apparent Distress
HEENT: Normocephalic, Moist mucous membranes and Atraumatic
Respiratory: Clear
Cardiac: S1/S2
GI: Soft, Non Tender, Non Distended and Normal Bowel Sounds;
Musculoskeletal: No Clubbing, No Cyanosis and No Edema
Skin: No Rash
Neuro: AAOX3, he followed commands, moved his extremities against gravity.
Psych: calm, pleasant
A/P:
# BARRON on presumably CKD IIIB secondary to hypovolemia/lisinopril
# Hyperkalemia
# Acute urinary retention
# Anion gap metabolic acidosis
-Potassium of 6
-Resolving
creatinine is coming down, will give Lokelma
K is coming down
Cantu then remove in AM 03/25
Appreciate nephrology
# Gastritis symptoms
- Has been taking Bentyl
- Continue PPI
Essential hypertension
Hypercholesterolemia
- Continue statin
History of gallstones
History of diverticulitis
Cerebral palsy
History of renal calculi
Chronic anemia
- Hemoglobin stable 11 point
Chronic back pain status post back surgery
Full code
DVT prophylaxis-heparin
Renal diet
Total time spent to see the patient, examine the patient, review data and lab results, discuss treatment plan with patient, nursing staff around 55 minutes
Anticipated Discharge: 24 - 48 hours
Subjective/Interval History
-
Date of Service: March 25, 2025
No chest pain
No sob
No abdominal pain
Objective Data
-
Labs:
Laboratory Results
03/25/25
06:51
WBC 6.5
Hgb 9.5 L
Hct 27.8 L
Plt Count 161 D
Sodium 139
Potassium 5.5 H
Chloride 113 H
Carbon Dioxide 24
BUN 39 H
Creatinine 1.5 H
Glucose 98
Calcium 8.4
Total Bilirubin 0.5
AST 19
ALT 19
Alkaline Phosphatase 79
Vital Signs:
Vital Signs
Temp Pulse Resp BP Pulse Ox
98.0 F 80 20 104/72 98
03/25/25 07:00 03/25/25 07:00 03/25/25 07:00 03/25/25 07:00 03/25/25 07:00
I&O
03/24/25 03/25/25 03/26/25
06:59 06:59 06:59
Intake Total 740 / 740
Output Total 800 / 800
Balance -60 / -60
[2025-03-25 11:00] VITALS: BP 106/62
[2025-03-25] MEDS: LOKELMA 10 GRAM PO (12:58)
[2025-03-25 15:00] VITALS: BP 88/59
--- NOTE | 2025-03-25 15:08 | CM ---
CM reviewed chart, patient seen bedside.
PT consulted, will await recommendations- per patient, he does not need PT.
Patient reports he is not interested in Advance Directive paperwork.
Patient reports he will be discharged home tomorrow, will have transportation home.
CM will continue to follow.
Plan; home no needs, watch for therapy evals
[2025-03-25] MEDS: LIPITOR 20 MG PO (17:12)
[2025-03-25 20:09] VITALS: BP 108/56
[2025-03-25 20:30] LABS: Hepatitis C Antibody Negative (Negative)
[2025-03-25] MEDS: TUMS CHEWABLE TABLET 200 MG PO (20:32)
[2025-03-25] MEDS: PROTONIX 40 MG PO (21:59)
[2025-03-25 23:28] VITALS: BP 110/54
[2025-03-26] VITALS (8 sets, daily range): BP systolic 88–108; BP diastolic 54–90; PULSE 102–115; O2SAT 100; BMI 18.9; BMI 19.0
[2025-03-26 07:02] LABS: Blood Urea Nitrogen 40 mg/dl (9-20); Calcium 9.1 mg/dl (8.4-10.2); Carbon Dioxide 26 mmol/L (22-30); Chloride 111 mmol/L (98-107); Estimated Creatinine Clearance 30 ml/min; Glucose 103 mg/dl (70-99); Potassium 5.9 mmol/L (3.5-5.1); Sodium 140 mmol/L (135-145); eGFR 46.77
[2025-03-26] MEDS: FLOMAX 0.4 MG PO (08:03)
[2025-03-26] MEDS: VITAMIN D3 (cholecalciferol) 50 MCG PO (08:03)
[2025-03-26] MEDS: HEPARIN 5000 UNITS SC ×2 (08:03→20:32)
[2025-03-26] MEDS: CLARITIN 10 MG PO (08:03)
[2025-03-26] MEDS: PROTONIX 40 MG PO (08:03)
--- NOTE | 2025-03-26 09:08 | W.PN.HOSP.TC ---
Addendum entered and electronically signed by New Hale MD 03/26/25 12:32:
Addendum
Patient was unable to do physical therapy due to lightheadedness and dizziness, did not have significant drop in blood pressure but was low at baseline. Will give midodrine and order echocardiogram for tomorrow. Doubt dehydration as patient is
eating well.
End
Addendum entered and electronically signed by New Hale MD 03/26/25 12:00:
Addendum
Anemia of chronic disease.
Monitor hemoglobin. Might need Epoetin. Nephrology is following. Monitor CBC
End
Original Note:
Today's Communication/Plan
-
Scheduled Lokelma for now
f/w nephrology recommendations
Updated POA
Assessment / Plan
Assessment / Plan
Physical Exam
General: No Apparent Distress
HEENT: Normocephalic, Moist mucous membranes and Atraumatic
Respiratory: Clear
Cardiac: S1/S2
GI: Soft, Non Tender, Non Distended and Normal Bowel Sounds;
Musculoskeletal: No Clubbing, No Cyanosis and No Edema
Skin: No Rash
Neuro: AAO to self and surroundings 3, he followed commands, moved his extremities against gravity.
Psych: calm, pleasant
A/P:
# BARRON on presumably CKD IIIB secondary to hypovolemia/lisinopril
# Hyperkalemia
# Acute urinary retention
# Anion gap metabolic acidosis
-Potassium of 6
-Resolving
creatinine is coming down, started short-term Lokelma for persistent hyperkalemia
Scan of the abdomen and pelvis showed bilateral nephrolithiasis without hydronephrosis. Multiple cystic lesions in both kidneys.
Cantu Cantu is removed, no big residual on bladder scan
Started on Flomax
Appreciate nephrology
# Gastritis symptoms
- Has been taking Bentyl
- Continue PPI
Essential hypertension
mildly hypotensive at times, no symptoms
Await lisinopril wash out. Flomax can lower Bp at time, continue monitoring.
Hypercholesterolemia
- Continue statin
History of gallstones
History of diverticulitis
Cerebral palsy, mood is a pleasant and cooperative.
History of renal cysts, calculi. No flank pain or hematuria.
Chronic back pain status post back surgery
Full code
DVT prophylaxis-heparin
Renal diet
Total time spent to see the patient, examine the patient, review data and lab results, discuss treatment plan with patient, medical POA (Shania), nursing staff around 55 minutes
Anticipated Discharge: > 48 hours
Subjective/Interval History
-
Date of Service: March 26, 2025
No pain issues except low back pain
No chest pain , no sob
Objective Data
-
Labs:
Laboratory Results
03/26/25
05:54
Sodium 140
Potassium 5.9 H
Chloride 111 H
Carbon Dioxide 26
BUN 40 H
Creatinine 1.5 H
Glucose 103 H
Calcium 9.1
Vital Signs:
Vital Signs
Temp Pulse Resp BP Pulse Ox
97.0 F 88 18 104/61 98
03/26/25 03:00 03/26/25 03:00 03/26/25 03:00 03/26/25 03:00 03/26/25 03:00
I&O
03/25/25 03/26/25 03/27/25
06:59 06:59 06:59
Intake Total 740 / 740 720 / 720 120 / 120
Output Total 800 / 800 650 / 650 800 / 800
Balance -60 / -60 70 / 70 -680 / -680
[2025-03-26] MEDS: LOKELMA 10 GRAM PO ×2 (13:15→17:12)
--- NOTE | 2025-03-26 15:27 | W.PN.NEPH.PH ---
Today's Communication / Plan
-
Lokelma
Continue bladder scan
Assessment/Plan
-
80-year-old male with past medical history of hypertension, GERD, hypercholesteremia, gallstones, diverticulitis, cerebral palsy, renal calculi, chronic back pain, presenting with weakness and generalized fatigue and shortness of breath with
exertion ongoing for the past month. He saw his primary care physician earlier in the week and had outpatient labs that showed abnormal renal function so was sent to the emergency room. He denies any fevers or chills.
Recent treatment of urinary tract infection with Cipro. No Bactrim recorded.
Has been taking Aleve daily for about 2 to 3 weeks for his back.
Urinary retention in the ER 300 repeat on the floor is 375.
Renal consultation for acute on chronic kidney disease and hyperkalemia with potassium of 6 and a mild metabolic acidosis
Impression.
Acute on chronic kidney disease based with a baseline of 1.6�1.7 as of July 2024. Creatinine 2.1 on admission.
Hyperkalemia 6.
Urinary retention.
Cerebral palsy chronic stable.
Chronic back pain status post Aleve daily for 2 or 3 weeks.
Plan.
Acuity multifactorial urinary retention/daily use of Aleve.
Patient had urinary retention on 2 occasions in the ER and on the floors of over 300 could be contributing to his hyperkalemia though no obstructive pathology on CAT scan.
Prostate enlarged�03/24 started Flomax.
Bilateral renal cysts and bilateral renal stones and no obstructive component no further workup at this time.
Discussed with patient and friends/POA at the bedside with patient's permission
Creatinine much improved 1.5 potassium remains slightly elevated elevated again at 5.9. = Lokelma ordered x 3
Cantu catheter was removed around 4 AM today patient voided twice no residual on bladder scan will continue to monitor as there is no obvious reason for elevated potassium other than diminished GFR though only 30 mL/min should be able to eliminate
potassium.
Blood pressure is soft we will need to keep an close eye on that and to initiate midodrine
-
-
Date of Service: March 26, 2025
CC / HPI / ROS
-
Chief Complaint:
Acute on chronic kidney disease and hyperkalemia
History of Present Illness:
Presents with hyperkalemia acute kidney injury
Review of Systems:
No chest pain or shortness of breath
Cantu removed
Labs
-
Labs:
WBC 6.5 10^3/uL (4.8-10.8) 03/25/25 06:51
RBC 3.11 10^6/uL (4.70-6.10) L 03/25/25 06:51
Hgb 9.5 g/dL (13.0-18.0) L 03/25/25 06:51
Hct 27.8 % (39.0-52.0) L 03/25/25 06:51
Plt Count 161 10^3/uL (130-400) D 03/25/25 06:51
Sodium 140 mmol/L (135-145) 03/26/25 05:54
Potassium 5.9 mmol/L (3.5-5.1) H 03/26/25 05:54
Chloride 111 mmol/L (98-107) H 03/26/25 05:54
Carbon Dioxide 26 mmol/L (22-30) 03/26/25 05:54
BUN 40 mg/dl (9-20) H 03/26/25 05:54
Creatinine 1.5 mg/dL (0.7-1.3) H 03/26/25 05:54
eGFR 46.77 03/26/25 05:54
Glucose 103 mg/dl (70-99) H 03/26/25 05:54
Calcium 9.1 mg/dl (8.4-10.2) 03/26/25 05:54
Albumin 3.0 g/dl (3.5-5.0) L 03/25/25 06:51
Physical Exam
-
Vital Signs:
Vital Signs
Temp Pulse Resp BP Pulse Ox
97.5 F 64 18 108/60 99
03/26/25 11:30 03/26/25 11:30 03/26/25 11:30 03/26/25 11:30 03/26/25 11:30
Respiratory:: Bilateral: CTA
Lung Excursion:: Normal
Abdomen:: Soft
Bowel Sounds:: Normal
Extremity Edema:: None: Bilateral:
Cantu Catheter: Yes
[2025-03-26] MEDS: LIPITOR 20 MG PO (17:12)
[2025-03-27] VITALS (7 sets, daily range): BP systolic 81–149; BP diastolic 46–102; PULSE 83–142; BMI 18.3
[2025-03-27] MEDS: LOKELMA 10 GRAM PO (05:26)
[2025-03-27 07:13] LABS: Hematocrit 32.0 % (39.0-52.0); Hemoglobin 10.3 g/dL (13.0-18.0); Mean Corp Hgb Conc. 32.2 g/dL (33.0-37.0); Mean Corpuscular Volume 93.0 fL (80.0-94.0); Platelet Count 169 10^3/uL (130-400); Red Cell Dist. Width 13.5 % (11.5-14.5)
[2025-03-27 07:27] LABS: Blood Urea Nitrogen 35 mg/dl (9-20); Calcium 8.8 mg/dl (8.4-10.2); Carbon Dioxide 27 mmol/L (22-30); Chloride 108 mmol/L (98-107); Estimated Creatinine Clearance 28 ml/min; Glucose 95 mg/dl (70-99); Potassium 5.0 mmol/L (3.5-5.1); Sodium 137 mmol/L (135-145); eGFR 43.29
[2025-03-27] MEDS: PROTONIX 40 MG PO (08:26)
[2025-03-27] MEDS: FLOMAX 0.4 MG PO (08:26)
[2025-03-27] MEDS: VITAMIN D3 (cholecalciferol) 50 MCG PO (08:26)
[2025-03-27] MEDS: HEPARIN 5000 UNITS SC ×2 (08:26→20:08)
[2025-03-27] MEDS: CLARITIN 10 MG PO (08:26)
--- NOTE | 2025-03-27 10:58 | W.PN.NEPH.PH ---
Today's Communication / Plan
-
Reduce Lokelma to once daily
Follow-up BMP
For echocardiogram today
Assessment/Plan
-
80-year-old male with past medical history of hypertension, GERD, hypercholesteremia, gallstones, diverticulitis, cerebral palsy, renal calculi, chronic back pain, presenting with weakness and generalized fatigue and shortness of breath with
exertion ongoing for the past month. He saw his primary care physician earlier in the week and had outpatient labs that showed abnormal renal function so was sent to the emergency room. He denies any fevers or chills.
Recent treatment of urinary tract infection with Cipro. No Bactrim recorded.
Has been taking Aleve daily for about 2 to 3 weeks for his back.
Urinary retention in the ER 300 repeat on the floor is 375.
Renal consultation for acute on chronic kidney disease and hyperkalemia with potassium of 6 and a mild metabolic acidosis
Impression.
Acute on chronic kidney disease based with a baseline of 1.6�1.7 as of July 2024. Creatinine 2.1 on admission.
Hyperkalemia 6.
Urinary retention.
Cerebral palsy chronic stable.
Chronic back pain status post Aleve daily for 2 or 3 weeks.
Plan.
Acuity multifactorial urinary retention/daily use of Aleve.
Patient had urinary retention on 2 occasions in the ER and on the floors of over 300 could be contributing to his hyperkalemia though no obstructive pathology on CAT scan.
Recent postvoid bladder scan without significant residual
Prostate enlarged�03/24 started Flomax.
Bilateral renal cysts and bilateral renal stones and no obstructive component no further workup at this time.
Discussed with patient and friends/POA at the bedside with patient's permission
Creatinine up to 1.6 potassium at 5 will decrease Lokelma to once daily
For echocardiogram today
Blood pressure is soft we will need to keep an close eye on that and to initiate midodrine
-
-
Date of Service: March 27, 2025
CC / HPI / ROS
-
Chief Complaint:
Acute on chronic kidney disease and hyperkalemia
History of Present Illness:
Presents with hyperkalemia acute kidney injury
Hemodynamically labile on midodrine
Potassium down to 5 creatinine up to 1.6
Review of Systems:
No fevers
No chest pain or shortness of breath
Cantu removed
Nonoliguric approximate 1100 cc
Labs
-
Labs:
WBC 6.4 10^3/uL (4.8-10.8) 03/27/25 06:45
RBC 3.44 10^6/uL (4.70-6.10) L 03/27/25 06:45
Hgb 10.3 g/dL (13.0-18.0) L 03/27/25 06:45
Hct 32.0 % (39.0-52.0) L 03/27/25 06:45
Plt Count 169 10^3/uL (130-400) 03/27/25 06:45
Sodium 137 mmol/L (135-145) 03/27/25 06:45
Potassium 5.0 mmol/L (3.5-5.1) 03/27/25 06:45
Chloride 108 mmol/L (98-107) H 03/27/25 06:45
Carbon Dioxide 27 mmol/L (22-30) 03/27/25 06:45
BUN 35 mg/dl (9-20) H 03/27/25 06:45
Creatinine 1.6 mg/dL (0.7-1.3) H 03/27/25 06:45
eGFR 43.29 03/27/25 06:45
Glucose 95 mg/dl (70-99) 03/27/25 06:45
Calcium 8.8 mg/dl (8.4-10.2) 03/27/25 06:45
Albumin 3.0 g/dl (3.5-5.0) L 03/25/25 06:51
Physical Exam
-
Vital Signs:
Vital Signs
Temp Pulse Resp BP Pulse Ox
98.3 F 73 18 129/59 98
03/27/25 07:30 03/27/25 07:30 03/27/25 07:30 03/27/25 07:30 03/27/25 08:35
Respiratory:: Bilateral: CTA
Lung Excursion:: Normal
Abdomen:: Soft
Bowel Sounds:: Normal
Extremity Edema:: None: Bilateral:
Cantu Catheter: Yes
--- NOTE | 2025-03-27 15:12 | W.PN.HOSP.TC ---
Today's Communication/Plan
-
Possible discharge tomorrow if dizziness resolves
Assessment / Plan
Assessment / Plan
A/P:
# BARRON on presumably CKD IIIB secondary to hypovolemia/lisinopril
# Hyperkalemia
# Acute urinary retention
# Anion gap metabolic acidosis
Creatinine is coming down, started short-term Lokelma for persistent hyperkalemia
Scan of the abdomen and pelvis showed bilateral nephrolithiasis without hydronephrosis. Multiple cystic lesions in both kidneys.
Cantu Cantu is removed, no big residual on bladder scan. Started on Flomax
Appreciate nephrology, Lokelma decreased to once a day, trend BMP
Potassium now normal, creatinine back to baseline
#Dizziness with standing
Orthostatic vital signs negative, echocardiogram normal
Continue to monitor with PT, who rec home PT vs SNF
Patient lives alone
# Gastritis symptoms
- Has been taking Bentyl
- Continue PPI
Essential hypertension
mildly hypotensive at times, no symptoms
Await lisinopril wash out. Flomax can lower Bp at time, continue monitoring.
Hypercholesterolemia
- Continue statin
History of gallstones
History of diverticulitis
Cerebral palsy, mood is a pleasant and cooperative.
History of renal cysts, calculi. No flank pain or hematuria.
Chronic back pain status post back surgery
DVT prophylaxis�subcu heparin
Low potassium diet
DNR
Total time spent to see the patient on the floor, examine the patient, review data and lab results, discuss treatment plan with patient, nursing staff around 40 minutes.
Physical Exam
General: No Apparent Distress
HEENT: Normocephalic, Moist mucous membranes and Atraumatic
Respiratory: Clear
Cardiac: S1/S2
GI: Soft, Non Tender, Non Distended and Normal Bowel Sounds;
Musculoskeletal: No Clubbing, No Cyanosis and No Edema
Skin: No Rash
Neuro: AAO to self and surroundings 3, he followed commands, moved his extremities against gravity.
Psych: calm, pleasant
Anticipated Discharge: Within 24 hours
Subjective/Interval History
-
Date of Service: March 27, 2025
Patient had lightheadedness yesterday with standing. He reports his lightheadedness has improved dramatically, but still present with standing. Denies chest pain, denies shortness of breath. No fever, no vomiting.
Objective Data
-
Labs:
Laboratory Results
03/27/25
06:45
WBC 6.4
Hgb 10.3 L
Hct 32.0 L
Plt Count 169
Sodium 137
Potassium 5.0
Chloride 108 H
Carbon Dioxide 27
BUN 35 H
Creatinine 1.6 H
Glucose 95
Calcium 8.8
Vital Signs:
Vital Signs
Temp Pulse Resp BP Pulse Ox
98.3 F 73 18 129/59 98
03/27/25 07:30 03/27/25 07:30 03/27/25 07:30 03/27/25 07:30 03/27/25 07:30
I&O
03/26/25 03/27/25 03/28/25
06:59 06:59 06:59
Intake Total 720 / 720 980 / 980
Output Total 650 / 650 1949 / 1950
Balance 70 / 70 -970 / -970
--- NOTE | 2025-03-27 16:22 | CM ---
Pt has dizziness.
PT OT indicated VN VS SNF.
Will offer VN at discharge.
Pt has transportation home
PLAN Home no needs Pt declined
[2025-03-27] MEDS: LIPITOR 20 MG PO (17:08)
[2025-03-28] VITALS (7 sets, daily range): BP systolic 82–133; BP diastolic 54–81; PULSE 76–127; O2SAT 99; BMI 18.6
[2025-03-28] MEDS: CLARITIN 10 MG PO (07:36)
[2025-03-28] MEDS: FLOMAX 0.4 MG PO (07:36)
[2025-03-28] MEDS: HEPARIN 5000 UNITS SC ×2 (07:36→20:13)
[2025-03-28] MEDS: PROTONIX 40 MG PO (07:37)
[2025-03-28] MEDS: LOKELMA 10 GRAM PO (07:37)
[2025-03-28] MEDS: VITAMIN D3 (cholecalciferol) 50 MCG PO (07:37)
[2025-03-28 07:44] LABS: Blood Urea Nitrogen 35 mg/dl (9-20); Calcium 8.6 mg/dl (8.4-10.2); Carbon Dioxide 29 mmol/L (22-30); Chloride 107 mmol/L (98-107); Estimated Creatinine Clearance 28 ml/min; Glucose 93 mg/dl (70-99); Potassium 4.8 mmol/L (3.5-5.1); Sodium 135 mmol/L (135-145); eGFR 43.29
--- NOTE | 2025-03-28 08:13 | PN.CDI ---
CDI
- -
CDI:
Physician Documentation Request
Admit Date: 03/24/25 13:32
Dear Doctor Do,
Please review the following and provide your response in the progress notes.
Clinical Indicators:
- RN skin assessments indicate Stage 1 right buttock pressure injury, POA
Physician documentation of the type and location of wounds is required for compliant documentation. Based on the above clinical findings and your assessment, please provide the following in your progress note:
1. Location of the ulcer/wound, including laterality.
2. Type (etiology) of ulcer/wound:
- Diabetic ulcer
- Arterial (ischemic) ulcer
- Traumatic wound
- Venous stasis ulcer
- Pressure (decubitus) ulcer
- Other
Use of terms such as suspected, likely, concern for, or probable (associated with a specific diagnosis that is being evaluated, monitored, or treated as if it exists) are acceptable and can be coded in the inpatient setting, when documented at the
time of discharge.
Thank you,
Bebeto Jaeger RN
CDI Specialist
Please use your independent medical judgment in providing your response.
*Source: National Pressure Ulcer Advisory Panel (NPUAP)
--- NOTE | 2025-03-28 09:37 | W.PN.HOSP.TC ---
Today's Communication/Plan
-
Discharge tomorrow if cleared by nephrology
Assessment / Plan
Assessment / Plan
A/P:
# BARRON on presumably CKD IIIB secondary to hypovolemia/lisinopril
# Hyperkalemia
# Acute urinary retention
# Anion gap metabolic acidosis
Creatinine is coming down, started short-term Lokelma for persistent hyperkalemia
Scan of the abdomen and pelvis showed bilateral nephrolithiasis without hydronephrosis. Multiple cystic lesions in both kidneys.
Cantu Cantu is removed, no big residual on bladder scan. Started on Flomax
Appreciate nephrology, Lokelma decreased to once a day, trend BMP
Potassium now normal, creatinine back to baseline
#Dizziness with standing
Orthostatic vital signs negative, echocardiogram normal
Continue to monitor with PT, who rec home PT vs SNF
Patient lives alone
#Stage 1 right buttock pressure injury, POA
Wound care, offloading
# Gastritis symptoms
- Has been taking Bentyl
- Continue PPI
Essential hypertension
mildly hypotensive at times, no symptoms
Await lisinopril wash out. Flomax can lower Bp at time, continue monitoring.
Hypercholesterolemia
- Continue statin
History of gallstones
History of diverticulitis
Cerebral palsy, mood is a pleasant and cooperative.
History of renal cysts, calculi. No flank pain or hematuria.
Chronic back pain status post back surgery
DVT prophylaxis�subcu heparin
Low potassium diet
DNR
Total time spent to see the patient on the floor, examine the patient, review data and lab results, discuss treatment plan with patient, nursing staff around 42 minutes.
Physical Exam
General: No Apparent Distress
HEENT: Normocephalic, Moist mucous membranes and Atraumatic
Respiratory: Clear
Cardiac: S1/S2, +murmur
GI: Soft, Non Tender, Non Distended and Normal Bowel Sounds;
Musculoskeletal: No Clubbing, No Cyanosis and No Edema
Neuro: AAO to self and surroundings 3, he followed commands, moved his extremities against gravity.
Psych: calm, pleasant
Anticipated Discharge: Within 24 hours
Subjective/Interval History
-
Date of Service: March 28, 2025
Patient reports feeling better. Denies dizziness with walking. No chest pain, shortness of breath. No fever, no vomiting.
Objective Data
-
Labs:
Laboratory Results
03/28/25
07:05
Sodium 135
Potassium 4.8
Chloride 107
Carbon Dioxide 29
BUN 35 H
Creatinine 1.6 H
Glucose 93
Calcium 8.6
Vital Signs:
Vital Signs
Temp Pulse Resp BP Pulse Ox
98 F 82 16 130/81 94
03/28/25 07:00 03/28/25 07:00 03/28/25 07:00 03/28/25 07:00 03/28/25 07:50
I&O
03/27/25 03/28/25 03/29/25
06:59 06:59 06:59
Intake Total 980 / 980 1300 / 1300
Output Total 1950 / 1950 900 / 900
Balance -970 / -970 400 / 400
--- NOTE | 2025-03-28 12:27 | PTCARENOTE ---
Pt ambulated in the hallway withn a walker. Minimal assistance given. Pt's gait unsteady but pt feels he is almost at baseline with ambulation CHART CALCULATOR. States he is tired. Will ambulate pt again this afternoon for increased strength and hopefully will
be discharged tomorrow home.
--- NOTE | 2025-03-28 12:42 | CM ---
CM reviewed chart, patient seen in chair.
Patient likely for d.c tomorrow.
Patient denies VN.
IMM verbally reviewed, provided with copy, placed in chart.
Patient confirms transportation home.
Plan; home no needs, declining VN
--- NOTE | 2025-03-28 15:30 | W.PN.NEPH.PH ---
Today's Communication / Plan
-
Creatinine at baseline 1.6
Check urine sodium to assess volume status
Potassium stable on once daily Lokelma
Assessment/Plan
-
80-year-old male with past medical history of hypertension, GERD, hypercholesteremia, gallstones, diverticulitis, cerebral palsy, renal calculi, chronic back pain, presenting with weakness and generalized fatigue and shortness of breath with
exertion ongoing for the past month. He saw his primary care physician earlier in the week and had outpatient labs that showed abnormal renal function so was sent to the emergency room. He denies any fevers or chills.
Recent treatment of urinary tract infection with Cipro. No Bactrim recorded.
Has been taking Aleve daily for about 2 to 3 weeks for his back.
Urinary retention in the ER 300 repeat on the floor is 375.
Renal consultation for acute on chronic kidney disease and hyperkalemia with potassium of 6 and a mild metabolic acidosis
Impression.
Acute on chronic kidney disease based with a baseline of 1.6�1.7 as of July 2024. Creatinine 2.1 on admission.
Hyperkalemia 6.
Urinary retention.
Cerebral palsy chronic stable.
Chronic back pain status post Aleve daily for 2 or 3 weeks.
Plan.
Acuity multifactorial urinary retention/daily use of Aleve.
Patient had urinary retention on 2 occasions in the ER and on the floors of over 300 could be contributing to his hyperkalemia though no obstructive pathology on CAT scan.
Recent postvoid bladder scan without significant residual
Prostate enlarged�10/17 started Flomax.
Bilateral renal cysts and bilateral renal stones and no obstructive component no further workup at this time.
Discussed with patient and friends/POA at the bedside with patient's permission
Creatinine unchanged at 1.6 potassium at 4.8 on once daily Lokelma
Echocardiogram report reviewed normal LV with EF of 70 to 75%
Blood pressure is soft we will need to keep an close eye on that and to initiate midodrine although hyperdynamic left ventricular function may indicate underlying volume depletion, I will check urine sodium
-
-
Date of Service: March 28, 2025
CC / HPI / ROS
-
Chief Complaint:
Acute on chronic kidney disease and hyperkalemia
History of Present Illness:
Presents with hyperkalemia acute kidney injury
Hemodynamically labile on midodrine
Potassium down to 4.8 creatinine up to 1.6
Review of Systems:
No fevers
No chest pain or shortness of breath
Cantu removed
Nonoliguric approximate 900 cc
Labs
-
Labs:
WBC 6.4 10^3/uL (4.8-10.8) 03/27/25 06:45
RBC 3.44 10^6/uL (4.70-6.10) L 03/27/25 06:45
Hgb 10.3 g/dL (13.0-18.0) L 03/27/25 06:45
Hct 32.0 % (39.0-52.0) L 03/27/25 06:45
Plt Count 169 10^3/uL (130-400) 03/27/25 06:45
Sodium 135 mmol/L (135-145) 03/28/25 07:05
Potassium 4.8 mmol/L (3.5-5.1) 03/28/25 07:05
Chloride 107 mmol/L (98-107) 03/28/25 07:05
Carbon Dioxide 29 mmol/L (22-30) 03/28/25 07:05
BUN 35 mg/dl (9-20) H 03/28/25 07:05
Creatinine 1.6 mg/dL (0.7-1.3) H 03/28/25 07:05
eGFR 43.29 03/28/25 07:05
Glucose 93 mg/dl (70-99) 03/28/25 07:05
Calcium 8.6 mg/dl (8.4-10.2) 03/28/25 07:05
Albumin 3.0 g/dl (3.5-5.0) L 03/25/25 06:51
Physical Exam
-
Vital Signs:
Vital Signs
Temp Pulse Resp BP Pulse Ox
98.1 F 117 16 105/64 95
03/28/25 14:51 03/28/25 14:51 03/28/25 14:51 03/28/25 14:51 03/28/25 14:51
Respiratory:: Bilateral: CTA
Lung Excursion:: Normal
Abdomen:: Soft
Bowel Sounds:: Normal
Extremity Edema:: None: Bilateral:
Cantu Catheter: Yes
[2025-03-28] MEDS: LIPITOR 20 MG PO (17:14)
[2025-03-28 21:13] LABS: Glucose - Point of Care 145 mg/dl (70-99)
--- NOTE | 2025-03-29 02:32 | DOWNTIME ---
There was a [employer] Downtime on 03/29/2025 from 0100 to 03/29/2025 at 0215. Downtime documentation of patient's care, including medication administrations, has been reconciled in the electronic record per guidelines. Refer to the
patient's paper chart under the miscellaneous tab to see printed paper medication records and downtime forms.
[2025-03-29 03:07] VITALS: BP 110/57
[2025-03-29 06:00] VITALS: BMI 19.3
[2025-03-29 07:45] VITALS: BP 103/58
[2025-03-29] MEDS: PROTONIX 40 MG PO (08:11)
[2025-03-29] MEDS: FLOMAX 0.4 MG PO (08:11)
[2025-03-29] MEDS: CLARITIN 10 MG PO (08:11)
[2025-03-29] MEDS: HEPARIN 5000 UNITS SC (08:11)
[2025-03-29 08:13] LABS: Glucose - Point of Care 91 mg/dl (70-99)
[2025-03-29] MEDS: LOKELMA 10 GRAM PO (08:13)
[2025-03-29] MEDS: VITAMIN D3 (cholecalciferol) 50 MCG PO (08:31)
[2025-03-29 09:25] LABS: Blood Urea Nitrogen 33 mg/dl (9-20); Calcium 8.5 mg/dl (8.4-10.2); Carbon Dioxide 25 mmol/L (22-30); Chloride 107 mmol/L (98-107); Estimated Creatinine Clearance 33 ml/min; Glucose 91 mg/dl (70-99); Potassium 4.6 mmol/L (3.5-5.1); Sodium 138 mmol/L (135-145); eGFR 50.81
--- NOTE | 2025-03-29 09:25 | W.PN.HOSP.TC ---
Today's Communication/Plan
-
Discharge today
Assessment / Plan
Assessment / Plan
A/P:
# BARRON on presumably CKD IIIB secondary to hypovolemia/lisinopril
# Hyperkalemia
# Acute urinary retention
# Anion gap metabolic acidosis
Creatinine is coming down, started short-term Lokelma for persistent hyperkalemia
Scan of the abdomen and pelvis showed bilateral nephrolithiasis without hydronephrosis. Multiple cystic lesions in both kidneys.
Cantu Cantu is removed, no big residual on bladder scan. Started on Flomax
Appreciate nephrology, potassium 4.6 on Lokelma once daily
Potassium now normal, creatinine back to baseline 1.4-1.6
Cleared by nephrology for discharge on Lokelma Thursday/Thursday/Fridays
Follow-up with nephrology in the office in 2-3 weeks, and PCP in 1 week
#Dizziness with standing
Orthostatic vital signs negative, echocardiogram normal
Patient lives alone
Patient was able to ambulate with nursing staff without dizziness
#Stage 1 right buttock pressure injury, POA
Wound care, offloading
# Gastritis symptoms
- Has been taking Bentyl
- Continue PPI
Essential hypertension
mildly hypotensive at times, no symptoms
Await lisinopril wash out. Flomax can lower Bp at time, continue monitoring.
Hypercholesterolemia
- Continue statin
History of gallstones
History of diverticulitis
Cerebral palsy, mood is a pleasant and cooperative.
History of renal cysts, calculi. No flank pain or hematuria.
Chronic back pain status post back surgery
DVT prophylaxis�subcu heparin
Low potassium diet
DNR
Physical Exam
General: No Apparent Distress
HEENT: Normocephalic, Moist mucous membranes and Atraumatic
Respiratory: Clear
Cardiac: S1/S2, +murmur
GI: Soft, Non Tender, Non Distended and Normal Bowel Sounds;
Musculoskeletal: No Clubbing, No Cyanosis and No Edema
Neuro: AAO to self and surroundings 3, he followed commands, moved his extremities against gravity.
Psych: calm, pleasant
Anticipated Discharge: Today
Subjective/Interval History
-
Date of Service: March 29, 2025
Patient reports feeling well. He ambulated yesterday without any dizziness. Told nursing that he is pretty close to baseline. Denies chest pain, denies shortness of breath. No fever, no vomiting.
Objective Data
-
Labs:
Laboratory Results
03/29/25
07:24
Sodium 138
Potassium 4.6
Chloride 107
Carbon Dioxide 25
BUN 33 H
Creatinine 1.4 H
Glucose 91
Calcium 8.5
Vital Signs:
Vital Signs
Temp Pulse Resp BP Pulse Ox
98.1 F 75 18 103/58 97
03/29/25 07:45 03/29/25 07:45 03/29/25 07:45 03/29/25 07:45 03/29/25 07:45
I&O
03/28/25 03/29/25 03/30/25
06:59 06:59 06:59
Intake Total 1300 / 1300
Output Total 900 / 900 1030 / 1030
Balance 400 / 400 -1030 / -1030
--- NOTE | 2025-03-29 10:32 | CM ---
CM reviewed chart, patient seen bedside.
Patient hopeful for d.c today.
Patient denies need for VN.
Patient confirms transportation home.
IMM provided 03/28.
CM will continue to follow for all d/c needs.
Plan; home no needs
--- NOTE | 2025-03-29 11:37 | W.DCSUMMARY ---
Discharge Summary
Discharge Data
Date of Admission: 03/24/25
Date of Discharge: 03/29/25
-
Pending Results: No
Hospital Course
Discharge diagnosis:
Acute kidney injury superimposed on stage III chronic kidney disease
Hyperkalemia
Acute urinary retention status post Cantu
Dizziness with standing
Gastritis
Essential hypertension
Hyperlipidemia
Cerebral palsy
Chronic back pain status post surgery
Consults: Nephrology
Hospital course:
80-year-old male with a past medical history of hypertension, GERD, hypercholesteremia, gallstones, diverticulitis, cerebral palsy, renal calculi, and chronic back pain was sent by his PCP for abnormal renal function and hyperkalemia. Patient has
been having weakness and generalized fatigue for the past month. Patient's creatinine was 2.1, his potassium was 5.6 upon admission. He was seen in conjunction with nephrology. He was found to have acute urinary retention, and had Cantu inserted.
He was started on Flomax. His Cantu was removed, and he was able to void successfully.
He received IV fluids and Lokelma. His lisinopril was discontinued. Patient's creatinine improved to 1.4 on the day of discharge, which is about his baseline. His potassium normalized to 4.6. Nephrology recommends discharge on Lokelma 10 mg on
Thursday/Thursday/Fridays.
Patient was seen in conjunction with PT, who recommended short-term rehab. Patient declined short-term rehab, he also declined home PT/visiting nurses. He did have some dizziness with standing. His dizziness improved dramatically. He was able to
ambulate in the hallways with the nurses without dizziness. He is medically stable for discharge. He needs to follow-up with nephrology in the office in 2-3 weeks, and his PCP in 1 week.
Disposition: Home, self-care
Discharge planning: Required 39 minutes
Discharge Plan
-
Patient Disposition: Home (Routine Discharge)
Discharge Diagnosis/Procedures: High potassium, acute kidney injury superimposed on chronic kidney disease, dizziness with standing
Condition: Good
Diet: Regular
Activity: As tolerated
Driving Restrictions: As prior to admission
Blood Work: BMP with PCP in 1 week
Activity Restrictions/Additional Instructions:
Take Lokelma on Mondays/Wednesdays/Fridays.
Please avoid all [id number] NSAID medications such as ibuprofen, naproxen, Aleve, Motrin, Advil.
These medications will worsen your kidney function.
Please follow-up with your PCP/primary care provider in 1 week.
You will need blood work, your PCP can write the prescription for you.
Also follow-up with nephrology in 2-3 weeks.
Referrals:
Douglas Tompkins, DO [Active, Nephrology] - in two to three weeks
UNKNOWN - PT DOES,NOT KNOW [Family Provider]
Prescriptions:
New
Lokelma 10 gram Powder In Packet
10 g PO .MOWEF Qty: 30 0RF
tamsulosin 0.4 mg Capsule
0.4 mg PO DAILY Qty: 30 0RF
Continued
simvastatin 40 MG tablet
40 mg PO DAILY
fexofenadine-pseudoephedrine [Deandra-D 24 Hour] 1 EACH tablet extended release 24 hr
10 mg PO DAILY PRN (Reason: allergies)
cholecalciferol (vitamin D3) [Vitamin D3] 2,000 UNIT capsule
2,000 unit PO DAILY
acetaminophen 325 MG tablet
650 mg PO Q4HPRN PRN (Reason: PAIN)
Dexilant
60 mg PO DAILY
Rx Instructions:
unsure of dose
Discontinued
lisinopril 10 MG tablet
10 mg PO DAILY
Discharge Orders:
Discharge Patient (As Directed); Ordered 03/29/25
Ordered By: Adams Armstrong
Discharge Date and Time
Discharge Date/Time: 03/29/25 13:17
Print Language: BRITISH
[2025-03-29 11:45] VITALS: BP 96/69
[2025-03-29 12:29] LABS: Glucose - Point of Care 98 mg/dl (70-99)
== END 2025-03-29 13:17 | disposition home or self-care (01) | DRG 683 ==
LOC: 4 WEST ACU 13:32
PROVIDERS: Internal Medicine; Physician Assistant; Specialist; ADMITTING PHYSICIAN Hospitalist; ATTENDING PHYSICIAN Family Medicine; CONSULT PHYSICIAN Internal Medicine Nephrology; EMERGENCY PHYSICIAN Emergency Medicine
DX: N17.9 Acute kidney failure, unspecified (principal); E87.20 Acidosis, unspecified; N13.8 Other obstructive and reflux uropathy; E87.5 Hyperkalemia; N18.30 Chronic kidney disease, stage 3 unspecified; I12.9 Hypertensive chronic kidney disease with stage 1 through stage 4 chronic kidney disease, or unspecified chronic kidney disease; E78.00 Pure hypercholesterolemia, unspecified; G80.9 Cerebral palsy, unspecified; G89.29 Other chronic pain; N40.1 Benign prostatic hyperplasia with lower urinary tract symptoms; K21.9 Gastro-esophageal reflux disease without esophagitis; Z87.442 Personal history of urinary calculi; E86.1 Hypovolemia; J45.909 Unspecified asthma, uncomplicated; K29.70 Gastritis, unspecified, without bleeding; Z95.5 Presence of coronary angioplasty implant and graft; Z88.2 Allergy status to sulfonamides; L89.311 Pressure ulcer of right buttock, stage 1; D64.9 Anemia, unspecified; Z79.899 Other long term (current) drug therapy; T46.4X5A Adverse effect of angiotensin-converting-enzyme inhibitors, initial encounter
CPT/HCPCS: 36415; 51701; 51798; 74176; 80048; 80053; 80061; 81003; 81015; 82043; 82306; 82570; 82947; 82962; 83036; 84132; 84153; 84300; 84443; 85025; 85027; 86803; 93005; 93306; 96361; 96365; 96375; 97163; 97167; 97530; 99285

== ENCOUNTER → 2025-04-07 08:18 | Outpatient (REF) | payer MEDICARE, BC, SELFPAY ==
[2025-04-07 10:16] LABS: Hematocrit 33.7 % (39.0-52.0); Hemoglobin 10.8 g/dL (13.0-18.0); Mean Corp Hgb Conc. 32.0 g/dL (33.0-37.0); Mean Corpuscular Volume 93.1 fL (80.0-94.0); Nucleated Red Blood Cells % 0 % (-); Platelet Count 300 10^3/uL (130-400); Red Cell Dist. Width 14.3 % (11.5-14.5)
[2025-04-07 10:31] LABS: Blood Urea Nitrogen 24 mg/dl (9-20); Calcium 9.2 mg/dl (8.4-10.2); Carbon Dioxide 25 mmol/L (22-30); Chloride 109 mmol/L (98-107); Glucose 98 mg/dl (70-99); Potassium 4.8 mmol/L (3.5-5.1); Sodium 139 mmol/L (135-145); eGFR 46.77
== END ==
LOC: HWLAB 08:18
PROVIDERS: ATTENDING PHYSICIAN Family Medicine
DX: E87.5 Hyperkalemia (principal); R53.83 Other fatigue; R53.1 Weakness; N18.30 Chronic kidney disease, stage 3 unspecified
CPT/HCPCS: 36415; 80048; 85025

== ENCOUNTER → 2025-05-17 10:39 | Outpatient (REF) | payer MEDICARE, BC, SELFPAY | LOC: CLAB 10:39 | PROVIDERS: ATTENDING PHYSICIAN Student in an Organized Health Care Education/Training Program | DX: N39.0 Urinary tract infection, site not specified (principal) | CPT/HCPCS: 87086 ==